=== PATIENT | female | born 1975 | race Caucasian/White ===

== ENCOUNTER 2024-05-13 08:33 | Outpatient (RCR) | payer MEDICAID, SELFPAY ==
[2024-05-13 08:37] VITALS: BP 157/59; PULSE 86; RESP 18; TEMP 36; BMI 46.5
--- NOTE | 2024-05-13 11:34 | PCM.WC.HP ---
History of Present Illness Date of Service: 05/13/24 Chief Complaint: Left labial wound after operative debridement History of Wound: Taylor Velásquez is an 49-year-old female who presents to the wound healing center today for continuation of care of her left labial wound. She states that she had cellulitis and an abscess that she went to [facility] in [place] and they did not I&D in the ER put her on some antibiotics and sent her home. 3 days later on 05/05/24, she return to the ER with increased erythema, pain, and fevers. She has uncontrolled diabetes. Her most recent hemoglobin A1c is 10.2. She is morbidly obese with a BMI of 46. She also smokes cigarettes. She was taken to the OR on 05/05/[address] Donna Mcallister for Necrotizing soft tissue infection of left groin (18 x 11 x 5 cm). Deep tissue cultures were positive for few mixed Anaerobic bacteria. She was discharged home on 05/08/24 doing Dry sterile gauze dressings to the wound 3 x per day. She was discharged on Augmentin x 10 days. She has a history of DM, HTN, hyperlipidemia, GERD, COPD, anxiety/depression. Today she is denying fever, chills, nausea or vomiting. She comes in for further evaluation and treatment of her left labial wound. Progress of Wound: Left labial wound is stable. The wound bed is beefy pink. It is painful to palpation. She denies any issues with the wound care. She has been packing it 3 times a day with dry kerlix. She states that dressing changes are uncomfortable. She has a good support system and her has been assisting her with the dressing changes. [facility] Medical History (Updated 05/13/24 @ 17:23 by Katherin Cordero PUTTY WORKER, PUTTY WORKER-C) Iron deficiency anemia DVT (deep venous thrombosis) Coronary artery disease Chronic back pain Anxiety and depression Elevated cholesterol Chronic anticoagulation Normal esophagogastroduodenoscopy (EGD) Ventral incisional hernia Morbid obesity with BMI of 45.0-49.9, adult Peripheral vascular disease Sleep apnea GERD (gastroesophageal reflux disease) HTN (hypertension) COPD (chronic obstructive pulmonary disease) Allergy/AdvReac Type Severity Reaction Status Date / Time No Known Allergies Allergy Verified 05/13/24 09:13 Family History (Updated 05/13/24 @ 17:07 by Katherin Cordero NP, PUTTY WORKER-C) Mother Diabetes Father Heart disease Social History Smoking Status: Current every day smoker ROS Constitutional Constitutional: Denies chills or fever(s) Eyes Eyes: Reports none ENT HEENT: Reports none Cardiovascular Cardiovascular: Denies chest pain or dyspnea Respiratory/Chest Respiratory/Chest: Reports as per HPI Gastrointestinal Gastrointestinal: Reports as per HPI Genitourinary Genitourinary: Reports none Musculoskeletal Musculoskeletal: Reports none Integumentary Integumentary: Reports as per HPI and wounds Neurologic Neurologic: Reports none Psychiatric Psychiatric: Reports systems reviewed and no addt'l complaints, except as documented Endocrine Endocrinology: Reports as per HPI Hematologic/Lymphatic Hematologic/Lymphatic: Reports none Allergic/Immunologic Allergic/Immunologic: Reports none Vital Signs Vital Signs Vital Signs: 05/13/24 08:37 Temperature 96.8 F L Temperature Source Temporal Pulse Rate 86 Respiratory Rate 18 Blood Pressure 157/59 H Blood Pressure Mean 91 Blood Pressure Source Monitor Weight Weight: 315 lb 7.297 oz Body Mass Index (BMI) 46.5 Physical Exam Const alert and oriented x3 General Appearance: cooperative HEENT normocephalic Head and Scalp: atraumatic Eyes General Eye: normal appearance of both eyes Neck full ROM Lymph Lymphatic: no lymphedema noted Resp normal respiratory effort, normal air movement and clear to auscultation bilaterally Effort and Inspection: able to speak in complete sentences Cardio regular rate and regular rhythm GI soft to palpation and non-tender Back/Spine normal ROM Extremity full ROM and normal capillary refill Skin Wound Narrative: Left labial wound with pink wound bed. Helen wound is clear. Neuro oriented x3 Psych mental status grossly normal, thought process normal and cooperative Debridement Note Debridement Note Wound debrided: Labial/groin wound Laterality: Left Wound Grade/Stage: Stage III Type of Debridement: Excisional debridement Anesthesia Used: 5% Lidocaine Gel Depth: Down to and including healthy tissue and in the subcutaneous layer Percentage of wound debrided: 100 Instrument Used: 7mm curette Tissue Removed: Non viable tissue and slough, into the muscle. Severity: Fat Layer Exposed Amount of bleeding with debridement: Mild Bleeding Controlled with: Compression and gauze Patient tolerated procedure: Patient tolerated procedure well Post-Debridement Measurements and Additional Note: Post-Debridement Measurements/Treatment WC - Nurse 1 - General Ulcer Assessment Start: 05/13/24 08:37 Freq: Status: Active Protocol: ELOISA Activity Type Activity Date Activity User E-sign Co-sign Detail Recorded Client Recorded Date Recorded By Document 05/13/24 08:37 DL [id number] 05/13/24 08:59 DL 05/13/24 08:37 - Today's Visit Information Type of service Initial Visit Arrival Mode Wheelchair Transfer Assistance None Patient Identification Verified (Name & Yes ) Patient Requires Transmission-Based No Precautions Height and Weight Height 5 ft 9 in Weight 315 lb 7.297 oz Weight in Pounds 315.5 lbs Body Mass Index (BMI) 46.5 BMI Classification Obese BSA - Yajaira 2.51 Vital Signs Temperature (97.8 F-99.1 F) 96.8 F L Temperature Source Temporal Pulse Rate (60-100) 86 Pulse Location Monitor Respiratory Rate (12-18) 18 Respiratory rate source Observation Blood Pressure (90/60-120/80) 157/59 H Blood Pressure Mean 91 Source Monitor Pain Scale: 0-10 Numeric Is Patient Pain Free? Yes Communication Assessment Preferred language Croatian Able to Read Yes Able to Write Yes Communication Tools None Right Hearing Abillity Normal Left Hearing Abillity Normal Visual Assistive Devices Glasses Teaching Assessment Preferences Verbal,Written, Audio/Visual, Demonstration Barriers to Learning None Readiness To Learn Excellent Willingness to Engage in Self Management High Activies Readiness to Engage in Self Management High Activities Anxiety Level Calm Cooperation Cooperative Perception Coherent Interest in Health Problem Asks Questions Education Importance Acknowledges Need Does Patient Smoke tobacco or other No substances Smoking Status Current every day smoker Is Patient Diabetic Yes Culture/Congregation/Want Ad Clerk Cultural/Congregation Needs that may affect No Treatment Plan Teaching: Wound Center Skin Care -Person Taught Patient -Teaching Method Discussion -Response to teaching Verbalize Understanding Dressing Your Wound -Person Taught Patient -Teaching Method Discussion -Response to teaching Verbalize Understanding *Wound/Skin Impairment -Person Taught Patient -Teaching Method Discussion -Response to teaching Verbalize Understanding *Welcome to the Wound Center -Person Taught Patient -Teaching Method Discussion -Response to teaching Verbalize Understanding - Nurse 1 - General Ulcer Measurement Start: 05/13/24 08:37 Freq: Status: Active Protocol: Activity Type Activity Date Activity User E-sign Co-sign Detail Recorded Client Recorded Date Recorded By Document 05/13/24 08:37 DL [id number] 05/13/24 08:59 DL 05/13/24 08:37 Wound Center Nurse 1 #1 - L GROIN -Combined with other wound No -Current Size (cm) - Length 19.2 -Current Size (cm) - Width 5 -Current Size (cm) - Depth 5.5 -Total Square Cm 96.0 -Date of Last Picture (Recall this 05/13/24 field) -Photo Taken Yes -Epithelialization None Present -Classification - Thickness Full Thickness without Exposed Support Structure -Exudate Amt Large -Exudate Type Serosanguineous -Wound Margin Distinct, Outline Attached -Granulation Amt Large (67-100%) -Granulation Quality Red -Slough/Fibrin Yes -Necrosis Amt Small (1-33%) -Necrotic Tissue Type Adherent Slough -Texture (Helen-wound Skin Appearance) Assessed, Excoriation, Scarring,Rash -Moisture (Helen-wound Skin Appearance) Assessed -Color (Helen-wound Skin Appearance) Assessed, Erythema -Temperature (Helen-wound Skin No Abnormality Appearance) (Pt Warm) -Tenderness on Palpation (Helen-wound No Skin Appearance) -Ulcer Cleansing Soap and Water -Foul Odor after Cleansing No -Anesthetic Used 4% Lidocaine Solution WC - Nurse 2 - General Ulcer CM Notes Start: 05/13/24 08:37 Freq: Status: Active Protocol: Activity Type Activity Date Activity User E-sign Co-sign Detail Recorded Client Recorded Date Recorded By Document 05/13/24 09:35 SANTIAGO [id number] 05/13/24 09:39 SANTIAGO 05/13/24 09:35 Wound Center Nurse 2 -Time 09:36 -Correct Patient Yes -Correct Side, Site, Position Yes -Correct Procedure Yes -Procedure Performed Yes -Type of Procedure Debridement -Clinical Debridement Muscle / Fascia -Tissue Removed Muscle,Fascia -Post Debridement (cm) - Length 16.0 -Post Debridement (cm) - Width 5.0 -Post Debridement (cm) - Depth 9.5 -Total Square (Post) (cm) 80.00 -Area of Debridement (cm) - Length 16.0 -Area of Debridement (cm) - Width 5.0 -Total Square (Area) (cm) 80.00 -Tunneling No -Undermining/Tunneling No -Circular Undermining No -Wound/Ulcer Outcome Not Healed -Ulcer Cleansing Rinsed/ Irrigated with Saline -Foul Odor after Cleansing No -Bioengineered Tissue No -Bleeding Controlled with Pressure -Treatment Response Procedure Tolerated Well -Offloading No -Debridement - Muscle / Fascia, 1st Yes 20sq cm -Debridement, Muscle/Fascia, ea addt'l 3 20sq cm or part thereof Pain Scale: 0-10 Numeric Is Patient Pain Free? Yes - Nurse 3 - General Ulcer D/C NN Start: 05/13/24 08:37 Freq: Status: Active Protocol: Activity Type Activity Date Activity User E-sign Co-sign Detail Recorded Client Recorded Date Recorded By Document 05/13/24 09:59 DL [id number] 05/13/24 10:00 DL 05/13/24 09:59 Wound Care Center Nurse 3 #1 - L GROIN -Ulcer Cleansing Rinsed/ Irrigated with Saline -Foul Odor after Cleansing No -Primary Dressing Applied Hysept ($) -Primary Dressing Covered/Secured with Dry Gauze & Roll Gauze, Secured with Tape -Other Covering abd Treatment Response Procedure Tolerated Well Pain Scale: 0-10 Numeric Is Patient Pain Free? Yes WC - Visit Discharge Discharge Condition Stable Ambulatory Status Ambulatory Transportation Private Auto Charges/Coding Visit Charges Office Visits / Consults: 46273 OV L3 New 30min (25 modifier) Procedures Integumentary 111xxx-113xx: 04364 Kaelyn musc/fascia 20 sq cm/< Add On Codes: 28913 Kaelyn musc/fascia add-on (x3) Assessment/Plan Assessment/Plan (1) Non-healing surgical wound of left groin: CODE(S): T81.89XA - Other complications of procedures, not elsewhere classified, initial encounter (2) COPD (chronic obstructive pulmonary disease): CODE(S): J44.9 - Chronic obstructive pulmonary disease, unspecified (3) HTN (hypertension): CODE(S): I10 - Essential (primary) hypertension PLAN: Plan Patient evaluated at the wound healing center. Wound care - Start Dakin's 0.25% moistened gauze topped with ABD/super absorber twice daily. Wash wound with soap and water daily. Reviewed chart from [facility]. She is currently on Augmentin, which she should complete. Will refer her to Dietary to help with wound healing and diabetic control. Discussed importance of increased protein intake to assist with wound healing. Follow up one week.
--- NOTE | 2024-05-14 09:04 | WC ---
PHOTO 05/13/24 LEFT LYNDA (I)
== END 2024-05-18 23:59 | disposition home or self-care (01) ==
LOC: WC 08:33
PROVIDERS: PCP Physician Assistant; Visit Provider Nurse Practitioner Family
DX: N76.4 Abscess of vulva (principal); J44.9 Chronic obstructive pulmonary disease, unspecified; E66.01 Morbid (severe) obesity due to excess calories; Z68.42 Body mass index [BMI] 45.0-49.9, adult; E11.51 Type 2 diabetes mellitus with diabetic peripheral angiopathy without gangrene; E78.5 Hyperlipidemia, unspecified; T81.89XA Other complications of procedures, not elsewhere classified, initial encounter; F17.210 Nicotine dependence, cigarettes, uncomplicated; I10 Essential (primary) hypertension; E78.00 Pure hypercholesterolemia, unspecified; I25.10 Atherosclerotic heart disease of native coronary artery without angina pectoris; K21.9 Gastro-esophageal reflux disease without esophagitis; Z86.718 Personal history of other venous thrombosis and embolism; B96.89 Other specified bacterial agents as the cause of diseases classified elsewhere
CPT/HCPCS: 11043; 11046; 99204; G0463

== ENCOUNTER 2024-06-17 09:45 | Outpatient (RCR) | payer MEDICAID, SELFPAY ==
[2024-05-19 00:57] VITALS: BP 157/59; PULSE 86; RESP 18; TEMP 36; BMI 46.5
[2024-05-20 08:31] VITALS: BP 149/75; PULSE 84; RESP 18; TEMP 36.6; BMI 46.5
--- NOTE | 2024-05-20 09:28 | PCM.WC.PN ---
History of Present Illness Date of Service: 05/20/24 Chief Complaint: Left labial wound after operative debridement History of Wound: Taylor Velásquez is an 49-year-old female who presents to the wound healing center today for continuation of care of her left labial wound. She states that she had cellulitis and an abscess that she went to [facility] in [place] and they did not I&D in the ER put her on some antibiotics and sent her home. 3 days later on 05/05/24, she return to the ER with increased erythema, pain, and fevers. She has uncontrolled diabetes. Her most recent hemoglobin A1c is 10.2. She is morbidly obese with a BMI of 46. She also smokes cigarettes. She was taken to the OR on 05/05/[address] Donna Mcallister for Necrotizing soft tissue infection of left groin (18 x 11 x 5 cm). Deep tissue cultures were positive for few mixed Anaerobic bacteria. She was discharged home on 05/08/24 doing Dry sterile gauze dressings to the wound 3 x per day. She was discharged on Augmentin x 10 days. She has a history of DM, HTN, hyperlipidemia, GERD, COPD, anxiety/depression. Today she is denying fever, chills, nausea or vomiting. She comes in for further evaluation and treatment of her left labial wound. Progress of Wound: Left labial wound is smaller. Decreased depth. The wound bed is beefy pink. It is painful to palpation. She denies any issues with the wound care. She has a yeast rash in her groin/labia and mons pubis. Objective Data Objective Data Vital Signs: Vital Signs Temp Pulse Resp BP 97.8 F 84 18 149/75 H 05/20/24 08:31 05/20/24 08:31 05/20/24 08:31 05/20/24 08:31 Weight: 315 lb 7.297 oz Body Mass Index (BMI) 46.5 Charges/Coding Procedures Integumentary 111xxx-113xx: 83859 Kaelyn musc/fascia 20 sq cm/< Add On Codes: 40240 Kaelyn musc/fascia add-on (x3) Debridement Note Debridement Note Wound debrided: Labial/groin wound Laterality: Left Wound Grade/Stage: Stage III Type of Debridement: Excisional debridement Anesthesia Used: 5% Lidocaine Gel Depth: Down to and including healthy tissue and in the subcutaneous layer Percentage of wound debrided: 100 Instrument Used: 7mm curette Tissue Removed: Non viable tissue and slough, into the muscle. Severity: Fat Layer Exposed Amount of bleeding with debridement: Mild Bleeding Controlled with: Compression and gauze Patient tolerated procedure: Patient tolerated procedure well Post-Debridement Measurements and Additional Note: Post-Debridement Measurements/Treatment TARYN - Nurse 1 - General Ulcer Assessment Start: 05/20/24 08:30 Freq: Status: Active Protocol: ELOISA Activity Type Activity Date Activity User E-sign Co-sign Detail Recorded Client Recorded Date Recorded By Document 05/20/24 08:31 DL [id number] 05/20/24 08:44 DL 05/20/24 08:31 WC - Today's Visit Information Type of service Follow-up Visit (Physician/GOODWILL REPRESENTATIVE ) Arrival Mode Ambulatory Transfer Assistance None Patient Identification Verified (Name & Yes ) Patient Requires Transmission-Based No Precautions Height and Weight Body Mass Index (BMI) 46.5 BMI Classification Obese Vital Signs Temperature (97.8 F-99.1 F) 97.8 F Temperature Source Temporal Pulse Rate (60-100) 84 Pulse Location Monitor Respiratory Rate (12-18) 18 Respiratory rate source Observation Blood Pressure (90/60-120/80) 149/75 H Blood Pressure Mean (mm Hg) 99 Source Monitor History Since Last Visit- (Skip if this is Patient's initial visit) Have you changed medications since your No last visit? Any new allergies or adverse reactions No Had a fall/change in ADL's that may No increase risk of falls Signs or symptoms of abuse and/or No neglect since last visit Have you been in the hospital since your No last visit? Has dressing in place as prescribed Yes Has compression in place as prescribed N/A Has offloadiing in place as prescribed N/A Experienced any changes in pain level or No management Pain Scale: 0-10 Numeric Is Patient Pain Free? Yes TARYN - Nurse 1 - General Ulcer Measurement Start: 05/20/24 08:30 Freq: Status: Active Protocol: Activity Type Activity Date Activity User E-sign Co-sign Detail Recorded Client Recorded Date Recorded By Document 05/20/24 08:31 DL [id number] 05/20/24 08:44 DL 05/20/24 08:31 Wound Center Nurse 1 #1 - L GROIN -Current Size (cm) - Length 16 -Current Size (cm) - Width 5 -Current Size (cm) - Depth 9.8 -Total Square Cm 80 -Exudate Amt Large -Exudate Type Serosanguineous -Wound Margin Distinct, Outline Attached -Granulation Amt Large (67-100%) -Granulation Quality Red -Necrosis Amt Small (1-33%) -Necrotic Tissue Type Adherent Slough -Structure Exposed N/A -Texture (Helen-wound Skin Appearance) Excoriation, Scarring -Moisture (Helen-wound Skin Appearance) Weeping -Color (Helen-wound Skin Appearance) Erythema -Temperature (Helen-wound Skin No Abnormality Appearance) (Pt Warm) -Tenderness on Palpation (Helen-wound No Skin Appearance) -Ulcer Cleansing Soap and Water -Foul Odor after Cleansing Yes -Anesthetic Used 4% Lidocaine Solution WC - Nurse 2 - General Ulcer CM Notes Start: 05/20/24 08:30 Freq: Status: Active Protocol: Activity Type Activity Date Activity User E-sign Co-sign Detail Recorded Client Recorded Date Recorded By Document 05/20/24 09:12 SANTIAGO [id number] 05/20/24 09:15 SANTIAGO 05/20/24 09:12 Wound Center Nurse 2 -Time 09:13 -Correct Patient Yes -Correct Side, Site, Position Yes -Correct Procedure Yes -Procedure Performed Yes -Type of Procedure Debridement -Clinical Debridement Muscle / Fascia -Tissue Removed Muscle,Fascia -Post Debridement (cm) - Length 16 -Post Debridement (cm) - Width 5 -Post Debridement (cm) - Depth 6.8 -Total Square (Post) (cm) 80 -Area of Debridement (cm) - Length 16 -Area of Debridement (cm) - Width 5 -Total Square (Area) (cm) 80 -Tunneling No -Undermining/Tunneling No -Circular Undermining No -Wound/Ulcer Outcome Not Healed -Ulcer Cleansing Rinsed/ Irrigated with Saline -Foul Odor after Cleansing No -Bioengineered Tissue No -Bleeding Controlled with Pressure -Treatment Response Procedure Not Tolerated Well -Offloading No -Debridement - Muscle / Fascia, 1st Yes 20sq cm -Debridement, Muscle/Fascia, ea addt'l 3 20sq cm or part thereof Pain Scale: 0-10 Numeric Is Patient Pain Free? Yes Assessment/Plan Assessment/Plan (1) Non-healing surgical wound of left groin: CODE(S): T81.89XA - Other complications of procedures, not elsewhere classified, initial encounter (2) COPD (chronic obstructive pulmonary disease): CODE(S): J44.9 - Chronic obstructive pulmonary disease, unspecified (3) HTN (hypertension): CODE(S): I10 - Essential (primary) hypertension PLAN: Plan Patient evaluated at the wound healing center. Wound care - Continue Dakin's 0.25% moistened gauze topped with ABD/super absorber twice daily. Wash wound with soap and water daily. Apply nystatin cream to groin, labia and mons pubis where yeast rash is located, BID. She is currently on Augmentin, which she should complete. Dietary here today for evaluation. Patient states her blood sugars are good. Discussed importance of increased protein intake to assist with wound healing. Follow up one week.
[2024-05-27 09:33] VITALS: BP 173/90; PULSE 87; RESP 16; TEMP 36.2; BMI 46.5
--- NOTE | 2024-05-27 14:23 | PCM.WC.PN ---
History of Present Illness Date of Service: 05/27/24 Chief Complaint: Left labial wound after operative debridement History of Wound: Taylor Velásquez is an 49-year-old female who presents to the wound healing center today for continuation of care of her left labial wound. She states that she had cellulitis and an abscess that she went to [facility] in [place] and they did not I&D in the ER put her on some antibiotics and sent her home. 3 days later on 05/05/24, she return to the ER with increased erythema, pain, and fevers. She has uncontrolled diabetes. Her most recent hemoglobin A1c is 10.2. She is morbidly obese with a BMI of 46. She also smokes cigarettes. She was taken to the OR on 05/05/[address] Donna Mcallister for Necrotizing soft tissue infection of left groin (18 x 11 x 5 cm). Deep tissue cultures were positive for few mixed Anaerobic bacteria. She was discharged home on 05/08/24 doing Dry sterile gauze dressings to the wound 3 x per day. She was discharged on Augmentin x 10 days. She has a history of DM, HTN, hyperlipidemia, GERD, COPD, anxiety/depression. Today she is denying fever, chills, nausea or vomiting. She comes in for further evaluation and treatment of her left labial wound. Progress of Wound: Left labial wound is smaller. Decreased depth. The wound bed is beefy pink. She denies any issues with the wound care. She continues to have a yeast rash in her groin/labia and mons pubis even with the use of the nystatin cream. Objective Data Objective Data Vital Signs: Vital Signs Temp Pulse Resp BP O2 Del Method 97.1 F L 87 16 173/90 H Room Air 05/27/24 09:33 05/27/24 09:33 05/27/24 09:33 05/27/24 09:33 05/27/24 09:33 Oxygen Delivery Method Room Air Weight: 315 lb 7.297 oz Body Mass Index (BMI) 46.5 Charges/Coding Procedures Integumentary 111xxx-113xx: 91082 Kaelyn musc/fascia 20 sq cm/< Add On Codes: 51804 Kaelyn musc/fascia add-on (x2) Debridement Note Debridement Note Wound debrided: Labial/groin wound Laterality: Left Wound Grade/Stage: Stage III Type of Debridement: Excisional debridement Anesthesia Used: 5% Lidocaine Gel Depth: Down to and including healthy tissue, in the subcutaneous layer and to muscle Percentage of wound debrided: 100 Instrument Used: 7mm curette Tissue Removed: Non viable tissue and slough, into the muscle. Severity: Fat Layer Exposed Amount of bleeding with debridement: Mild Bleeding Controlled with: Compression and gauze Patient tolerated procedure: Patient tolerated procedure well Post-Debridement Measurements and Additional Note: Post-Debridement Measurements/Treatment - Nurse 1 - General Ulcer Assessment Start: 05/20/24 08:30 Freq: Status: Active Protocol: ELOISA Activity Type Activity Date Activity User E-sign Co-sign Detail Recorded Client Recorded Date Recorded By Document 05/20/24 08:31 DL [id number] 05/20/24 08:44 DL Document 05/27/24 09:33 BM [id number] 05/27/24 09:40 BMF 05/20/24 05/27/24 08:31 09:33 - Today's Visit Information Type of service Follow-up Visit Follow-up Visit (Physician/UNDERGROUND TRUCK OPERATOR (Physician/UNDERGROUND TRUCK OPERATOR ) ) Arrival Mode Ambulatory Ambulatory Transfer Assistance None None Accompanied by Patient Identification Verified (Name & Yes Yes ) Patient Requires Transmission-Based No Precautions Height and Weight Body Mass Index (BMI) 46.5 46.5 BMI Classification Obese Obese Vital Signs Temperature (97.8 F-99.1 F) 97.8 F 97.1 F L Temperature Source Temporal Temporal Pulse Rate (60-100) 84 87 Pulse Location Monitor Monitor Respiratory Rate (12-18) 18 16 Respiratory rate source Observation Observation Oxygen Delivery Method Room Air Blood Pressure (90/60-120/80) 149/75 H 173/90 H Blood Pressure Mean (mm Hg) 99 117 Source Monitor Monitor Position Sitting Blood Pressure Location Left Arm History Since Last Visit- (Skip if this is Patient's initial visit) Have you changed medications since your No No last visit? Any new allergies or adverse reactions No No Had a fall/change in ADL's that may No No increase risk of falls Signs or symptoms of abuse and/or No No neglect since last visit Have you been in the hospital since your No No last visit? Has dressing in place as prescribed Yes Yes Has compression in place as prescribed N/A N/A Has offloadiing in place as prescribed N/A N/A Experienced any changes in pain level or No No management Left Footwear Regular Shoe Right Footwear Regular Shoe Pain Scale: 0-10 Numeric Is Patient Pain Free? Yes Yes WC - Nurse 1 - General Ulcer Measurement Start: 05/20/24 08:30 Freq: Status: Active Protocol: Activity Type Activity Date Activity User E-sign Co-sign Detail Recorded Client Recorded Date Recorded By Document 05/20/24 08:31 DL [id number] 05/20/24 08:44 DL Document 05/27/24 09:33 BMF [id number] 05/27/24 09:40 BMF 05/20/24 05/27/24 08:31 09:33 Wound Center Nurse 1 #1 - L GROIN -Combined with other wound No -Current Size (cm) - Length 16 15.5 -Current Size (cm) - Width 5 5.5 -Current Size (cm) - Depth 9.8 6.8 -Total Square Cm 80 85.25 -Date of Last Picture (Recall this 05/27/24 field) -Photo Taken Yes -Epithelialization Small 1-33% -Tunneling No -Undermining/Tunneling No -Circular Undermining No -Exudate Amt Large Large -Exudate Type Serosanguineous Serosanguineous -Wound Margin Distinct, Distinct, Outline Outline Attached Attached -Granulation Amt Large (67-100%) Large (67-100%) -Granulation Quality Red Red -Slough/Fibrin No -Necrosis Amt Small (1-33%) None Present (0 %) -Necrotic Tissue Type Adherent Slough -Structure Exposed N/A -Texture (Helen-wound Skin Appearance) Excoriation, Assessed, Scarring Scarring,Rash -Moisture (Helen-wound Skin Appearance) Weeping Assessed -Color (Helen-wound Skin Appearance) Erythema Assessed -Temperature (Helen-wound Skin No Abnormality No Abnormality Appearance) (Pt Warm) (Pt Warm) -Tenderness on Palpation (Helen-wound No No Skin Appearance) -Ulcer Cleansing Soap and Water Soap and Water -Foul Odor after Cleansing Yes No -Anesthetic Used 4% Lidocaine 4% Lidocaine Solution Solution -Wound Comment(s) skin folds look yeasty, but less so than last visit. TARYN - Nurse 2 - General Ulcer CM Notes Start: 05/20/24 08:30 Freq: Status: Active Protocol: Activity Type Activity Date Activity User E-sign Co-sign Detail Recorded Client Recorded Date Recorded By Document 05/20/24 09:12 [id number] 05/20/24 09:15 Document 05/27/24 10:18 [id number] 05/27/24 10:21 JF 05/20/24 05/27/24 09:12 10:18 Wound Center Nurse 2 #1 - L GROIN -Time 09:13 10:18 -Correct Patient Yes Yes -Correct Side, Site, Position Yes Yes -Correct Procedure Yes Yes -Procedure Performed Yes Yes -Type of Procedure Debridement Debridement -Clinical Debridement Muscle / Fascia Muscle / Fascia -Tissue Removed Muscle,Fascia Muscle,Fascia -Post Debridement (cm) - Length 16 16.0 -Post Debridement (cm) - Width 5 3.5 -Post Debridement (cm) - Depth 6.8 6.5 -Total Square (Post) (cm) 80 56.00 -Area of Debridement (cm) - Length 16 16.0 -Area of Debridement (cm) - Width 5 3.5 -Total Square (Area) (cm) 80 56.00 -Tunneling No No -Undermining/Tunneling No No -Circular Undermining No No -Wound/Ulcer Outcome Not Healed Not Healed -Ulcer Cleansing Rinsed/ Rinsed/ Irrigated with Irrigated with Saline Saline -Foul Odor after Cleansing No No -Bioengineered Tissue No No -Bleeding Controlled with Pressure Pressure -Treatment Response Procedure Not Procedure Tolerated Well Tolerated Well -Offloading No No -Debridement - Muscle / Fascia, 1st Yes Yes 20sq cm -Debridement, Muscle/Fascia, ea addt'l 3 2 20sq cm or part thereof Pain Scale: 0-10 Numeric Is Patient Pain Free? Yes Yes WC - Nurse 3 - General Ulcer D/C NN Start: 05/20/24 08:30 Freq: Status: Active Protocol: Activity Type Activity Date Activity User E-sign Co-sign Detail Recorded Client Recorded Date Recorded By Document 05/27/24 10:33 [facility] [id number] 05/27/24 10:34 [facility] 05/27/24 10:33 Wound Care Center Nurse 3 #1 - L GROIN -Ulcer Cleansing Rinsed/ Irrigated with Saline -Foul Odor after Cleansing No -Other Dressing dakins moist gauze; abd -Primary Dressing Covered/Secured with Secured with Tape Treatment Response Procedure Tolerated Well Pain Scale: 0-10 Numeric Is Patient Pain Free? Yes WC - Visit Discharge Discharge Condition Stable Ambulatory Status Ambulatory Transportation Private Auto Accompanied by Assessment/Plan Assessment/Plan (1) Non-healing surgical wound of left groin: CODE(S): T81.89XA - Other complications of procedures, not elsewhere classified, initial encounter (2) COPD (chronic obstructive pulmonary disease): CODE(S): J44.9 - Chronic obstructive pulmonary disease, unspecified (3) HTN (hypertension): CODE(S): I10 - Essential (primary) hypertension PLAN: Plan Patient evaluated at the wound healing center. Her and her are doing a nice job with her wound care. Wound care - Continue Dakin's 0.25% moistened gauze topped with ABD/super absorber twice daily. Wash wound with soap and water daily. Apply nystatin cream to groin, labia and mons pubis where yeast rash is located, BID. She has completed the Augmentin Patient states her blood sugars are good. Discussed importance of increased protein intake to assist with wound healing. She does not have follow up with the surgeon who did her surgery in [place]. I recommend calling their office and having a follow up them. Follow up one week.
--- NOTE | 2024-05-28 14:35 | WC ---
PHOTO LEFT GROIN 05/27/24
[2024-06-03 08:59] VITALS: BP 189/94; PULSE 85; RESP 16; TEMP 36.1; BMI 46.5
--- NOTE | 2024-06-03 13:10 | PCM.WC.PN ---
History of Present Illness Date of Service: 06/03/24 Chief Complaint: Left labial wound after operative debridement History of Wound: Taylor Velásquez is an 49-year-old female who presents to the wound healing center today for continuation of care of her left labial wound. She states that she had cellulitis and an abscess that she went to [facility] in [place] and they did not I&D in the ER put her on some antibiotics and sent her home. 3 days later on 05/05/24, she return to the ER with increased erythema, pain, and fevers. She has uncontrolled diabetes. Her most recent hemoglobin A1c is 10.2. She is morbidly obese with a BMI of 46. She also smokes cigarettes. She was taken to the OR on 05/05/[address] Donna Mcallister for Necrotizing soft tissue infection of left groin (18 x 11 x 5 cm). Deep tissue cultures were positive for few mixed Anaerobic bacteria. She was discharged home on 05/08/24 doing Dry sterile gauze dressings to the wound 3 x per day. She was discharged on Augmentin x 10 days. She has a history of DM, HTN, hyperlipidemia, GERD, COPD, anxiety/depression. Today she is denying fever, chills, nausea or vomiting. She comes in for further evaluation and treatment of her left labial wound. Progress of Wound: Left labial wound is smaller. Decreased depth. Decreased undermining from 6-12 o'clock. The wound bed is beefy pink. She denies any issues with the wound care. The yeast rash in her groin/labia and mons pubis is starting to improve, it looks much less angry. She is continuing to use the nystatin cream. Objective Data Objective Data Vital Signs: Vital Signs Temp Pulse Resp BP O2 Del Method 96.9 F L 85 16 189/94 H Room Air 06/03/24 08:59 06/03/24 08:59 06/03/24 08:59 06/03/24 08:59 05/27/24 09:33 Oxygen Delivery Method Room Air Weight: 315 lb 7.297 oz Body Mass Index (BMI) 46.5 Charges/Coding Procedures Integumentary 111xxx-113xx: 00878 Kaelyn subq tissue 20 sq cm/< Add On Codes: 55267 Kaelyn subq tissue add-on (x3) Debridement Note Debridement Note Wound debrided: Labial/groin wound Laterality: Left Wound Grade/Stage: Stage III Type of Debridement: Excisional debridement Anesthesia Used: 5% Lidocaine Gel Depth: Down to and including healthy tissue and in the subcutaneous layer Percentage of wound debrided: 100 Instrument Used: 7mm curette Tissue Removed: Non viable tissue and slough. Severity: Fat Layer Exposed Amount of bleeding with debridement: Mild Bleeding Controlled with: Compression and gauze Patient tolerated procedure: Patient tolerated procedure well Post-Debridement Measurements and Additional Note: Post-Debridement Measurements/Treatment - Nurse 1 - General Ulcer Assessment Start: 05/20/24 08:30 Freq: Status: Active Protocol: TARYN.Clean MobileLanny Activity Type Activity Date Activity User E-sign Co-sign Detail Recorded Client Recorded Date Recorded By Document 05/20/24 08:31 DL [id number] 05/20/24 08:44 DL Document 05/27/24 09:33 BMF [id number] 05/27/24 09:40 BMF Document 06/03/24 08:59 ML [id number] 06/03/24 09:03 ML 05/20/24 05/27/24 06/03/24 08:31 09:33 08:59 - Today's Visit Information Type of service Follow-up Visit Follow-up Visit Follow-up Visit (Physician/MORTAR MAN (Physician/MORTAR MAN (Physician/MORTAR MAN ) ) ) Arrival Mode Ambulatory Ambulatory Ambulatory Transfer Assistance None None None Accompanied by Patient Identification Verified (Name & Yes Yes Yes ) Patient Requires Transmission-Based No No Precautions Height and Weight Body Mass Index (BMI) 46.5 46.5 46.5 BMI Classification Obese Obese Obese Vital Signs Temperature (97.8 F-99.1 F) 97.8 F 97.1 F L 96.9 F L Temperature Source Temporal Temporal Temporal Pulse Rate (60-100) 84 87 85 Pulse Location Monitor Monitor Monitor Respiratory Rate (12-18) 18 16 16 Respiratory rate source Observation Observation Observation Oxygen Delivery Method Room Air Blood Pressure (90/60-120/80) 149/75 H 173/90 H 189/94 H Blood Pressure Mean (mm Hg) 99 117 125 Source Monitor Monitor Manual Position Sitting Sitting Blood Pressure Location Left Arm Left Forearm History Since Last Visit- (Skip if this is Patient's initial visit) Have you changed medications since your No No No last visit? Any new allergies or adverse reactions No No No Had a fall/change in ADL's that may No No No increase risk of falls Signs or symptoms of abuse and/or No No No neglect since last visit Have you been in the hospital since your No No last visit? Has dressing in place as prescribed Yes Yes Yes Has compression in place as prescribed N/A N/A N/A Has offloadiing in place as prescribed N/A N/A N/A Experienced any changes in pain level or No No No management Left Footwear Regular Shoe Right Footwear Regular Shoe Pain Scale: 0-10 Numeric Is Patient Pain Free? Yes Yes Yes WC - Nurse 1 - General Ulcer Measurement Start: 05/20/24 08:30 Freq: Status: Active Protocol: Activity Type Activity Date Activity User E-sign Co-sign Detail Recorded Client Recorded Date Recorded By Document 05/20/24 08:31 DL [id number] 05/20/24 08:44 DL Document 05/27/24 09:33 BMF [id number] 05/27/24 09:40 BMF Document 06/03/24 08:59 ML [id number] 06/03/24 09:03 ML 05/20/24 05/27/24 06/03/24 08:31 09:33 08:59 Wound Center Nurse 1 #1 - L GROIN -Combined with other wound No -Current Size (cm) - Length 16 15.5 13 -Current Size (cm) - Width 5 5.5 4 -Current Size (cm) - Depth 9.8 6.8 0.1 -Total Square Cm 80 85.25 52 -Date of Last Picture (Recall this 05/27/24 field) -Photo Taken Yes -Epithelialization Small 1-33% -Tunneling No -Undermining/Tunneling No -Circular Undermining No -Exudate Amt Large Large Medium -Exudate Type Serosanguineous Serosanguineous Serosanguineous -Wound Margin Distinct, Distinct, Distinct, Outline Outline Outline Attached Attached Attached -Granulation Amt Large (67-100%) Large (67-100%) Medium (34-66%) -Granulation Quality Red Red -Slough/Fibrin No -Necrosis Amt Small (1-33%) None Present (0 Medium (34-66%) %) -Necrotic Tissue Type Adherent Slough Adherent Slough -Structure Exposed N/A -Texture (Helen-wound Skin Appearance) Excoriation, Assessed, Assessed Scarring Scarring,Rash -Moisture (Helen-wound Skin Appearance) Weeping Assessed Assessed -Color (Helen-wound Skin Appearance) Erythema Assessed Assessed -Temperature (Helen-wound Skin No Abnormality No Abnormality No Abnormality Appearance) (Pt Warm) (Pt Warm) (Pt Warm) -Tenderness on Palpation (Helen-wound No No No Skin Appearance) -Ulcer Cleansing Soap and Water Soap and Water Soap and Water -Foul Odor after Cleansing Yes No No -Anesthetic Used 4% Lidocaine 4% Lidocaine 5% Lidocaine Solution Solution Gel -Wound Comment(s) skin folds look yeasty, but less so than last visit. WC - Nurse 2 - General Ulcer CM Notes Start: 05/20/24 08:30 Freq: Status: Active Protocol: Activity Type Activity Date Activity User E-sign Co-sign Detail Recorded Client Recorded Date Recorded By Document 05/20/24 09:12 [id number] 05/20/24 09:15 Document 05/27/24 10:18 [id number] 05/27/24 10:21 Document 06/03/24 09:15 [id number] 06/03/24 09:19 05/20/24 05/27/24 06/03/24 09:12 10:18 09:15 Wound Center Nurse 2 #1 - L GROIN -Time 09:13 10:18 09:17 -Correct Patient Yes Yes Yes -Correct Side, Site, Position Yes Yes Yes -Correct Procedure Yes Yes Yes -Procedure Performed Yes Yes Yes -Type of Procedure Debridement Debridement Debridement -Clinical Debridement Muscle / Fascia Muscle / Fascia Subcutaneous -Tissue Removed Muscle,Fascia Muscle,Fascia Subcutaneous -Post Debridement (cm) - Length 16 16.0 14.3 -Post Debridement (cm) - Width 5 3.5 5 -Post Debridement (cm) - Depth 6.8 6.5 0.1 -Total Square (Post) (cm) 80 56.00 71.5 -Area of Debridement (cm) - Length 16 16.0 14.3 -Area of Debridement (cm) - Width 5 3.5 5 -Total Square (Area) (cm) 80 56.00 71.5 -Tunneling No No -Undermining/Tunneling No No Yes -Undermining/Tunneling Starts (O'clock 6 ) -Undermining/Tunneling Ends (O'clock) 12 -Maximum Distance (cm) 0.6 -Circular Undermining No No No -Wound/Ulcer Outcome Not Healed Not Healed Not Healed -Ulcer Cleansing Rinsed/ Rinsed/ Rinsed/ Irrigated with Irrigated with Irrigated with Saline Saline Saline -Foul Odor after Cleansing No No No -Bioengineered Tissue No No No -Bleeding Controlled with Pressure Pressure Pressure -Treatment Response Procedure Not Procedure Procedure Tolerated Well Tolerated Well Tolerated Well -Offloading No No No -Debridement - Subq, 1st 20sq cm Yes -Debridement, SubQ, ea addt'l 20sq cm 3 or part thereof -Debridement - Muscle / Fascia, 1st Yes Yes 20sq cm -Debridement, Muscle/Fascia, ea addt'l 3 2 20sq cm or part thereof Pain Scale: 0-10 Numeric Is Patient Pain Free? Yes Yes Yes - Nurse 3 - General Ulcer D/C NN Start: 05/20/24 08:30 Freq: Status: Active Protocol: Activity Type Activity Date Activity User E-sign Co-sign Detail Recorded Client Recorded Date Recorded By Document 05/27/24 10:33 [facility] [id number] 05/27/24 10:34 [facility] Document 06/03/24 09:29 [facility] [id number] 06/03/24 09:29 [facility] 05/27/24 06/03/24 10:33 09:29 Wound Care Center Nurse 3 #1 - L GROIN -Ulcer Cleansing Rinsed/ Soap and Water Irrigated with Saline -Foul Odor after Cleansing No No -Other Dressing dakins moist dakins moist gauze; abd gauze -Primary Dressing Covered/Secured with Secured with Secured with Tape Tape -Other Covering abd Treatment Response Procedure Procedure Tolerated Well Tolerated Well Pain Scale: 0-10 Numeric Is Patient Pain Free? Yes Yes - Visit Discharge Discharge Condition Stable Stable Ambulatory Status Ambulatory Ambulatory Transportation Private Auto Private Auto Accompanied by Assessment/Plan Assessment/Plan (1) Non-healing surgical wound of left groin: CODE(S): T81.89XA - Other complications of procedures, not elsewhere classified, initial encounter (2) COPD (chronic obstructive pulmonary disease): CODE(S): J44.9 - Chronic obstructive pulmonary disease, unspecified (3) HTN (hypertension): CODE(S): I10 - Essential (primary) hypertension PLAN: Plan Patient evaluated at the wound healing center. She and her are doing a nice job with her wound care. Wound care - Continue Dakin's 0.25% moistened gauze topped with ABD/super absorber twice daily. Wash wound with soap and water daily. Apply nystatin cream to groin, labia and mons pubis where yeast rash is located, BID. She has completed the Augmentin Patient states her blood sugars are good. Discussed importance of increased protein intake to assist with wound healing. Follow up one week.
[2024-06-17 09:23] VITALS: BP 161/102; PULSE 86; RESP 16; TEMP 36.2; BMI 46.5
--- NOTE | 2024-06-17 16:06 | PCM.WC.PN ---
History of Present Illness Date of Service: 06/17/24 Chief Complaint: Left labial wound after operative debridement History of Wound: Taylor Velásquez is an 49-year-old female who presents to the wound healing center today for continuation of care of her left labial wound. She states that she had cellulitis and an abscess that she went to [facility] in [place] and they did not I&D in the ER put her on some antibiotics and sent her home. 3 days later on 05/05/24, she return to the ER with increased erythema, pain, and fevers. She has uncontrolled diabetes. Her most recent hemoglobin A1c is 10.2. She is morbidly obese with a BMI of 46. She also smokes cigarettes. She was taken to the OR on 05/05/[address] Donna Mcallister for Necrotizing soft tissue infection of left groin (18 x 11 x 5 cm). Deep tissue cultures were positive for few mixed Anaerobic bacteria. She was discharged home on 05/08/24 doing Dry sterile gauze dressings to the wound 3 x per day. She was discharged on Augmentin x 10 days. She has a history of DM, HTN, hyperlipidemia, GERD, COPD, anxiety/depression. Today she is denying fever, chills, nausea or vomiting. She comes in for further evaluation and treatment of her left labial wound. Progress of Wound: Left labial wound is much smaller. Undermining has resolved. She is having difficulty keeping the packing in. The wound bed is beefy pink. She denies any issues with the wound care. The yeast rash in her groin/labia and mons pubis is stable. She is continuing to use the nystatin cream. Objective Data Objective Data Vital Signs: Vital Signs Temp Pulse Resp BP O2 Del Method 97.1 F L 86 16 161/102 H Room Air 06/17/24 09:23 06/17/24 09:23 06/17/24 09:23 06/17/24 09:23 05/27/24 09:33 Oxygen Delivery Method Room Air Weight: 315 lb 7.297 oz Body Mass Index (BMI) 46.5 Charges/Coding Procedures Integumentary 111xxx-113xx: 06602 Kaelyn subq tissue 20 sq cm/< Add On Codes: 65275 Kaelyn subq tissue add-on Debridement Note Debridement Note Wound debrided: Labial/groin wound Laterality: Left Wound Grade/Stage: Stage III Type of Debridement: Excisional debridement Anesthesia Used: 5% Lidocaine Gel Depth: Down to and including healthy tissue and in the subcutaneous layer Percentage of wound debrided: 100 Instrument Used: 7mm curette Tissue Removed: Non viable tissue and slough. Severity: Fat Layer Exposed Amount of bleeding with debridement: Mild Bleeding Controlled with: Compression and gauze Patient tolerated procedure: Patient tolerated procedure well Post-Debridement Measurements and Additional Note: Post-Debridement Measurements/Treatment - Nurse 1 - General Ulcer Assessment Start: 05/20/24 08:30 Freq: Status: Active Protocol: Design2LaunchÁNGEL Activity Type Activity Date Activity User E-sign Co-sign Detail Recorded Client Recorded Date Recorded By Document 05/20/24 08:31 DL [id number] 05/20/24 08:44 DL Document 05/27/24 09:33 BMF [id number] 05/27/24 09:40 BMF Document 06/03/24 08:59 ML [id number] 06/03/24 09:03 ML Document 06/17/24 09:23 ML [id number] 06/17/24 09:28 ML 05/20/24 05/27/24 06/03/24 08:31 09:33 08:59 - Today's Visit Information Type of service Follow-up Visit Follow-up Visit Follow-up Visit (Physician/INTERMEDIATE DESIGNER (Physician/INTERMEDIATE DESIGNER (Physician/INTERMEDIATE DESIGNER ) ) ) Arrival Mode Ambulatory Ambulatory Ambulatory Transfer Assistance None None None Accompanied by Patient Identification Verified (Name & Yes Yes Yes ) Patient Requires Transmission-Based No No Precautions Height and Weight Body Mass Index (BMI) 46.5 46.5 46.5 BMI Classification Obese Obese Obese Vital Signs Temperature (97.8 F-99.1 F) 97.8 F 97.1 F L 96.9 F L Temperature Source Temporal Temporal Temporal Pulse Rate (60-100) 84 87 85 Pulse Location Monitor Monitor Monitor Respiratory Rate (12-18) 18 16 16 Respiratory rate source Observation Observation Observation Oxygen Delivery Method Room Air Blood Pressure (90/60-120/80) 149/75 H 173/90 H 189/94 H Blood Pressure Mean (mm Hg) 99 117 125 Source Monitor Monitor Manual Position Sitting Sitting Blood Pressure Location Left Arm Left Forearm History Since Last Visit- (Skip if this is Patient's initial visit) Have you changed medications since your No No No last visit? Any new allergies or adverse reactions No No No Had a fall/change in ADL's that may No No No increase risk of falls Signs or symptoms of abuse and/or No No No neglect since last visit Have you been in the hospital since your No No last visit? Has dressing in place as prescribed Yes Yes Yes Has compression in place as prescribed N/A N/A N/A Has offloadiing in place as prescribed N/A N/A N/A Experienced any changes in pain level or No No No management Left Footwear Regular Shoe Right Footwear Regular Shoe Pain Scale: 0-10 Numeric Is Patient Pain Free? Yes Yes Yes 06/17/24 09:23 WC - Today's Visit Information Type of service Follow-up Visit (Physician/INTERMEDIATE DESIGNER ) Arrival Mode Ambulatory Transfer Assistance None Accompanied by Patient Identification Verified (Name & Yes ) Patient Requires Transmission-Based No Precautions Height and Weight Body Mass Index (BMI) 46.5 BMI Classification Obese Vital Signs Temperature (97.8 F-99.1 F) 97.1 F L Temperature Source Temporal Pulse Rate (60-100) 86 Pulse Location Monitor Respiratory Rate (12-18) 16 Respiratory rate source Observation Oxygen Delivery Method Blood Pressure (90/60-120/80) 161/102 H Blood Pressure Mean (mm Hg) 121 Source Monitor Position Semi-Fowlers Blood Pressure Location Right Arm History Since Last Visit- (Skip if this is Patient's initial visit) Have you changed medications since your No last visit? Any new allergies or adverse reactions No Had a fall/change in ADL's that may No increase risk of falls Signs or symptoms of abuse and/or neglect since last visit Have you been in the hospital since your No last visit? Has dressing in place as prescribed Yes Has compression in place as prescribed N/A Has offloadiing in place as prescribed N/A Experienced any changes in pain level or No management Left Footwear Right Footwear Pain Scale: 0-10 Numeric Is Patient Pain Free? Yes - Nurse 1 - General Ulcer Measurement Start: 05/20/24 08:30 Freq: Status: Active Protocol: Activity Type Activity Date Activity User E-sign Co-sign Detail Recorded Client Recorded Date Recorded By Document 05/20/24 08:31 DL [id number] 05/20/24 08:44 DL Document 05/27/24 09:33 BMF [id number] 05/27/24 09:40 BMF Document 06/03/24 08:59 ML [id number] 06/03/24 09:03 ML Document 06/17/24 09:23 ML [id number] 06/17/24 09:28 ML 05/20/24 05/27/24 06/03/24 08:31 09:33 08:59 Wound Center Nurse 1 #1 - L GROIN -Combined with other wound No -Current Size (cm) - Length 16 15.5 13 -Current Size (cm) - Width 5 5.5 4 -Current Size (cm) - Depth 9.8 6.8 0.1 -Total Square Cm 80 85.25 52 -Date of Last Picture (Recall this 05/27/24 field) -Photo Taken Yes -Epithelialization Small 1-33% -Tunneling No -Undermining/Tunneling No -Circular Undermining No -Exudate Amt Large Large Medium -Exudate Type Serosanguineous Serosanguineous Serosanguineous -Wound Margin Distinct, Distinct, Distinct, Outline Outline Outline Attached Attached Attached -Granulation Amt Large (67-100%) Large (67-100%) Medium (34-66%) -Granulation Quality Red Red -Slough/Fibrin No -Necrosis Amt Small (1-33%) None Present (0 Medium (34-66%) %) -Necrotic Tissue Type Adherent Slough Adherent Slough -Structure Exposed N/A -Texture (Helen-wound Skin Appearance) Excoriation, Assessed, Assessed Scarring Scarring,Rash -Moisture (Helen-wound Skin Appearance) Weeping Assessed Assessed -Color (Helen-wound Skin Appearance) Erythema Assessed Assessed -Temperature (Helen-wound Skin No Abnormality No Abnormality No Abnormality Appearance) (Pt Warm) (Pt Warm) (Pt Warm) -Tenderness on Palpation (Helen-wound No No No Skin Appearance) -Ulcer Cleansing Soap and Water Soap and Water Soap and Water -Foul Odor after Cleansing Yes No No -Anesthetic Used 4% Lidocaine 4% Lidocaine 5% Lidocaine Solution Solution Gel -Wound Comment(s) skin folds look yeasty, but less so than last visit. 06/17/24 09:23 Wound Center Nurse 1 #1 - L GROIN -Combined with other wound -Current Size (cm) - Length 9.5 -Current Size (cm) - Width 3.5 -Current Size (cm) - Depth 0.1 -Total Square Cm 33.25 -Date of Last Picture (Recall this field) -Photo Taken -Epithelialization -Tunneling -Undermining/Tunneling -Circular Undermining -Exudate Amt Medium -Exudate Type Serosanguineous -Wound Margin Distinct, Outline Attached -Granulation Amt Medium (34-66%) -Granulation Quality -Slough/Fibrin -Necrosis Amt Small (1-33%) -Necrotic Tissue Type Adherent Slough -Structure Exposed -Texture (Helen-wound Skin Appearance) Assessed -Moisture (Helen-wound Skin Appearance) Assessed -Color (Helen-wound Skin Appearance) Assessed -Temperature (Helen-wound Skin No Abnormality Appearance) (Pt Warm) -Tenderness on Palpation (Helen-wound No Skin Appearance) -Ulcer Cleansing Soap and Water -Foul Odor after Cleansing Yes -Anesthetic Used 5% Lidocaine Gel -Wound Comment(s) WC - Nurse 2 - General Ulcer CM Notes Start: 05/20/24 08:30 Freq: Status: Active Protocol: Activity Type Activity Date Activity User E-sign Co-sign Detail Recorded Client Recorded Date Recorded By Document 05/20/24 09:12 [id number] 05/20/24 09:15 Document 05/27/24 10:18 [id number] 05/27/24 10:21 Document 06/03/24 09:15 JF [id number] 06/03/24 09:19 Document 06/17/24 09:37 DS [id number] 06/17/24 09:40 DS 05/20/24 05/27/24 06/03/24 09:12 10:18 09:15 Wound Center Nurse 2 #1 - L GROIN -Time 09:13 10:18 09:17 -Correct Patient Yes Yes Yes -Correct Side, Site, Position Yes Yes Yes -Correct Procedure Yes Yes Yes -Procedure Performed Yes Yes Yes -Type of Procedure Debridement Debridement Debridement -Clinical Debridement Muscle / Fascia Muscle / Fascia Subcutaneous -Tissue Removed Muscle,Fascia Muscle,Fascia Subcutaneous -Post Debridement (cm) - Length 16 16.0 14.3 -Post Debridement (cm) - Width 5 3.5 5 -Post Debridement (cm) - Depth 6.8 6.5 0.1 -Total Square (Post) (cm) 80 56.00 71.5 -Area of Debridement (cm) - Length 16 16.0 14.3 -Area of Debridement (cm) - Width 5 3.5 5 -Total Square (Area) (cm) 80 56.00 71.5 -Tunneling No No -Undermining/Tunneling No No Yes -Undermining/Tunneling Starts (O'clock 6 ) -Undermining/Tunneling Ends (O'clock) 12 -Maximum Distance (cm) 0.6 -Circular Undermining No No No -Wound/Ulcer Outcome Not Healed Not Healed Not Healed -Ulcer Cleansing Rinsed/ Rinsed/ Rinsed/ Irrigated with Irrigated with Irrigated with Saline Saline Saline -Foul Odor after Cleansing No No No -Bioengineered Tissue No No No -Bleeding Controlled with Pressure Pressure Pressure -Treatment Response Procedure Not Procedure Procedure Tolerated Well Tolerated Well Tolerated Well -Offloading No No No -Debridement - Subq, 1st 20sq cm Yes -Debridement, SubQ, ea addt'l 20sq cm 3 or part thereof -Debridement - Muscle / Fascia, 1st Yes Yes 20sq cm -Debridement, Muscle/Fascia, ea addt'l 3 2 20sq cm or part thereof Pain Scale: 0-10 Numeric Is Patient Pain Free? Yes Yes Yes 06/17/24 09:37 Wound Center Nurse 2 #1 - L GROIN -Time 09:37 -Correct Patient Yes -Correct Side, Site, Position Yes -Correct Procedure Yes -Procedure Performed Yes -Type of Procedure Debridement -Clinical Debridement Subcutaneous -Tissue Removed Subcutaneous -Post Debridement (cm) - Length 10.5 -Post Debridement (cm) - Width 4.0 -Post Debridement (cm) - Depth 0.2 -Total Square (Post) (cm) 42.00 -Area of Debridement (cm) - Length 10.5 -Area of Debridement (cm) - Width 4.0 -Total Square (Area) (cm) 42.00 -Tunneling No -Undermining/Tunneling No -Undermining/Tunneling Starts (O'clock ) -Undermining/Tunneling Ends (O'clock) -Maximum Distance (cm) -Circular Undermining No -Wound/Ulcer Outcome Not Healed -Ulcer Cleansing Rinsed/ Irrigated with Saline -Foul Odor after Cleansing -Bioengineered Tissue No -Bleeding Controlled with Pressure -Treatment Response Procedure Tolerated Well -Offloading -Debridement - Subq, 1st 20sq cm Yes -Debridement, SubQ, ea addt'l 20sq cm 2 or part thereof -Debridement - Muscle / Fascia, 1st 20sq cm -Debridement, Muscle/Fascia, ea addt'l 20sq cm or part thereof Pain Scale: 0-10 Numeric Is Patient Pain Free? Yes - Nurse 3 - General Ulcer D/C NN Start: 05/20/24 08:30 Freq: Status: Active Protocol: Activity Type Activity Date Activity User E-sign Co-sign Detail Recorded Client Recorded Date Recorded By Document 05/27/24 10:33 [facility] [id number] 05/27/24 10:34 BM Document 06/03/24 09:29 BMF [id number] 06/03/24 09:29 [facility] Document 06/17/24 09:49 ML [id number] 06/17/24 09:49 ML 05/27/24 06/03/24 06/17/24 10:33 09:29 09:49 Wound Care Center Nurse 3 #1 - L GROIN -Ulcer Cleansing Rinsed/ Soap and Water Rinsed/ Irrigated with Irrigated with Saline Saline -Foul Odor after Cleansing No No -Primary Dressing Applied Aquacel AG 4x4 -Other Dressing dakins moist dakins moist abd gauze; abd gauze -Primary Dressing Covered/Secured with Secured with Secured with Secured with Tape Tape Tape -Other Covering abd -Aquacel AG 4x4 1 Treatment Response Procedure Procedure Tolerated Well Tolerated Well Pain Scale: 0-10 Numeric Is Patient Pain Free? Yes Yes Yes - Visit Discharge Discharge Condition Stable Stable Ambulatory Status Ambulatory Ambulatory Transportation Private Auto Private Auto Accompanied by Assessment/Plan Assessment/Plan (1) Non-healing surgical wound of left groin: CODE(S): T81.89XA - Other complications of procedures, not elsewhere classified, initial encounter (2) COPD (chronic obstructive pulmonary disease): CODE(S): J44.9 - Chronic obstructive pulmonary disease, unspecified (3) HTN (hypertension): CODE(S): I10 - Essential (primary) hypertension PLAN: Plan Patient evaluated at the wound healing center. She and her are doing a nice job with her wound care. Wound care - Start Aquacel-Ag topped with ABD/super absorber daily and as needed. Wash wound with soap and water daily. Apply nystatin cream to groin, labia and mons pubis where yeast rash is located, BID. She has completed the Augmentin Patient states her blood sugars are good. Discussed importance of increased protein intake to assist with wound healing. Follow up two weeks.
== END 2024-06-18 23:59 | disposition home or self-care (01) ==
LOC: WC 09:45
PROVIDERS: PCP Physician Assistant; Visit Provider Nurse Practitioner Family
DX: N76.4 Abscess of vulva (principal); J44.9 Chronic obstructive pulmonary disease, unspecified; E66.01 Morbid (severe) obesity due to excess calories; Z68.42 Body mass index [BMI] 45.0-49.9, adult; E11.9 Type 2 diabetes mellitus without complications; E78.5 Hyperlipidemia, unspecified; F17.210 Nicotine dependence, cigarettes, uncomplicated; I10 Essential (primary) hypertension; T81.89XA Other complications of procedures, not elsewhere classified, initial encounter; Y83.8 Other surgical procedures as the cause of abnormal reaction of the patient, or of later complication, without mention of misadventure at the time of the procedure; K21.9 Gastro-esophageal reflux disease without esophagitis; B37.31 Acute candidiasis of vulva and vagina
CPT/HCPCS: 11042; 11043; 11045; 11046; 97802

== ENCOUNTER 2024-07-15 09:45 | Outpatient (RCR) | payer MEDICAID, SELFPAY ==
[2024-06-19 00:49] VITALS: BP 157/59; PULSE 86; RESP 18; TEMP 36; BMI 46.5
[2024-07-01 09:34] VITALS: BP 146/80; PULSE 80; RESP 15; TEMP 36.3; BMI 46.5
--- NOTE | 2024-07-01 10:12 | PN.PCM_ITS ---
History of Present Illness Date of Service: 07/01/24 Chief Complaint: Left labial wound after operative debridement History of Wound: Taylor Velásquez is an 49-year-old female who presents to the wound healing center today for continuation of care of her left labial wound. She states that she had cellulitis and an abscess that she went to [facility] in [place] and they did not I&D in the ER put her on some antibiotics and sent her home. 3 days later on 05/05/24, she return to the ER with i ncreased erythema, pain, and fevers. She has uncontrolled diabetes. Her most recent hemoglobin A1c is 10.2. She is morbidly obese with a BMI of 46. She also smokes cigarettes. She was taken to the OR on 05/05/[address] Donna Mcallister for Necrotizing soft tissue infection of left groin (18 x 11 x 5 cm). Deep tissue cultures were positive for few mixed Anaerobic bacteria. She was discharged home on 05/08/24 doing Dry sterile gauze dressings to the wound 3 x per day. She was discharged on Augmentin x 10 days. She has a history of DM, HTN, hyperlipidemia, GERD, COPD, anxiety/depression. Today she is denying fever, chills, nausea or vomiting. She comes in for further evaluation and treatment of her left labial wound. Progress of Wound: Left labial ulcer is smaller. The ulcer bed is beefy pink. Helen wound is clear. The yeast rash has resolved. She denies any issues with the wound care. Objective Data Objective Data Vital Signs: Vital Signs Temp Pulse Resp BP 97.4 F L 80 15 146/80 H 07/01/24 09:34 07/01/24 09:34 07/01/24 09:34 07/01/24 09:34 Weight: 315 lb 7.297 oz Body Mass Index (BMI) 46.5 Charges/Coding Procedures Integumentary 111xxx-113xx: 25938 Kaelyn subq tissue 20 sq cm/< Debridement Note Debridement Note Wound debrided: Labial/groin ulcer Laterality: Left Wound Grade/Stage: Stage III Type of Debridement: Excisional debridement Anesthesia Used: 5% Lidocaine Gel Depth: Down to and including healthy tissue and in the subcutaneous layer Percentage of wound debrided: 100 Instrument Used: 7mm curette Tissue Removed: Non viable tissue and slough. Severity: Fat Layer Exposed Amount of bleeding with debridement: Mild Bleeding Controlled with: Compression and gauze Patient tolerated procedure: Patient tolerated procedure well Post-Debridement Measurements and Additional Note: Post-Debridement Measurements/Treatment - Nurse 1 - General Ulcer Assessment Start: 07/01/24 09:34 Freq: Status: Active Protocol: ELOISA Activity Type Activity Date Activity User E-sign Co-sign Detail Recorded Client Recorded Date Recorded By Document 07/01/24 09:34 ML [id number] 07/01/24 09:40 ML 07/01/24 09:34 WC - Today's Visit Information Type of service Follow-up Visit (Physician/GL ACCOUNTANT ) Arrival Mode Ambulatory Transfer Assistance None Patient Identification Verified (Name & Yes ) Patient Requires Transmission-Based No Precautions Height and Weight Body Mass Index (BMI) 46.5 BMI Classification Obese Vital Signs Temperature (97.8 F-99.1 F) 97.4 F L Temperature Source Temporal Pulse Rate (60-100) 80 Pulse Location Monitor Respiratory Rate (12-18) 15 Respiratory rate source Observation Blood Pressure (90/60-120/80) 146/80 H Blood Pressure Mean (mm Hg) 102 Source Monitor Position Sitting Blood Pressure Location Left Arm History Since Last Visit- (Skip if this is Patient's initial visit) Have you changed medications since your No last visit? Any new allergies or adverse reactions No Had a fall/change in ADL's that may No increase risk of falls Signs or symptoms of abuse and/or No neglect since last visit Have you been in the hospital since your No last visit? Has dressing in place as prescribed No Has compression in place as prescribed N/A Has offloadiing in place as prescribed N/A Experienced any changes in pain level or No management Pain Scale: 0-10 Numeric Is Patient Pain Free? Yes - Nurse 1 - General Ulcer Measurement Start: 07/01/24 09:34 Freq: Status: Active Protocol: Activity Type Activity Date Activity User E-sign Co-sign Detail Recorded Client Recorded Date Recorded By Document 07/01/24 09:34 ML [id number] 07/01/24 09:40 ML 07/01/24 09:34 Wound Center Nurse 1 #1 - L GROIN -Current Size (cm) - Length 7 -Current Size (cm) - Width 1.5 -Current Size (cm) - Depth 0.1 -Total Square Cm 10.5 -Exudate Amt Medium -Exudate Type Serosanguineous -Wound Margin Distinct, Outline Attached -Granulation Amt Medium (34-66%) -Necrosis Amt Medium (34-66%) -Necrotic Tissue Type Adherent Slough -Texture (Helen-wound Skin Appearance) Assessed -Moisture (Helen-wound Skin Appearance) Assessed -Color (Helen-wound Skin Appearance) Assessed -Temperature (Helen-wound Skin No Abnormality Appearance) (Pt Warm) -Tenderness on Palpation (Helen-wound No Skin Appearance) -Ulcer Cleansing Soap and Water -Foul Odor after Cleansing No -Anesthetic Used 5% Lidocaine Gel WC - Nurse 2 - General Ulcer CM Notes Start: 07/01/24 09:34 Freq: Status: Active Protocol: Activity Type Activity Date Activity User E-sign Co-sign Detail Recorded Client Recorded Date Recorded By Document 07/01/24 09:51 GM [id number] 07/01/24 09:55 GM 07/01/24 09:51 Wound Center Nurse 2 -Time 09:51 -Correct Patient Yes -Correct Side, Site, Position Yes -Correct Procedure Yes -Procedure Performed Yes -Type of Procedure Debridement -Clinical Debridement Subcutaneous -Tissue Removed Subcutaneous -Post Debridement (cm) - Length 7.5 -Post Debridement (cm) - Width 2.4 -Post Debridement (cm) - Depth 0.1 -Total Square (Post) (cm) 18.00 -Area of Debridement (cm) - Length 7.5 -Area of Debridement (cm) - Width 2.4 -Total Square (Area) (cm) 18.00 -Tunneling No -Undermining/Tunneling No -Circular Undermining No -Wound/Ulcer Outcome Not Healed -Ulcer Cleansing Rinsed/ Irrigated with Saline -Foul Odor after Cleansing No -Bioengineered Tissue No -Bleeding Controlled with Pressure -Treatment Response Procedure Tolerated Well -Debridement - Subq, 1st 20sq cm Yes Pain Scale: 0-10 Numeric Is Patient Pain Free? Yes - Nurse 3 - General Ulcer D/C NN Start: 07/01/24 09:34 Freq: Status: Active Protocol: Activity Type Activity Date Activity User E-sign Co-sign Detail Recorded Client Recorded Date Recorded By Document 07/01/24 10:01 ML [id number] 07/01/24 10:02 ML 07/01/24 10:01 Wound Care Center Nurse 3 #1 - L GROIN -Ulcer Cleansing Rinsed/ Irrigated with Saline -Primary Dressing Applied Aquacel AG 4x4 -Other Dressing abd -Aquacel AG 4x4 1 Pain Scale: 0-10 Numeric Is Patient Pain Free? Yes Assessment/Plan Assessment/Plan (1) Ulcer of left groin with fat layer exposed: CODE(S): L98.492 - Non-pressure chronic ulcer of skin of other sites with fat layer exposed (2) COPD (chronic obstructive pulmonary disease): CODE(S): J44.9 - Chronic obstructive pulmonary disease, unspecified (3) HTN (hypertension): CODE(S): I10 - Essential (primary) hypertension PLAN: Plan Patient evaluated at the wound healing center. She and her are doing a nice job with her wound care. Wound care - Aquacel-Ag topped with ABD/super absorber daily and as needed. Wash wound with soap and water daily. Patient states her blood sugars are good. Discussed importance of increased protein intake to assist with wound healing. Follow up one week.
[2024-07-15 09:37] VITALS: BP 156/92; PULSE 78; RESP 18; TEMP 36.1; BMI 46.5
--- NOTE | 2024-07-15 12:53 | PCM.WC.PN ---
History of Present Illness Date of Service: 07/15/24 Chief Complaint: Left labial wound after operative debridement History of Wound: Taylor Velásquez is an 49-year-old female who presents to the wound healing center today for continuation of care of her left labial wound. She states that she had cellulitis and an abscess that she went to [facility] in [place] and they did not I&D in the ER put her on some antibiotics and sent her home. 3 days later on 05/05/24, she return to the ER with increased erythema, pain, and fevers. She has uncontrolled diabetes. Her most recent hemoglobin A1c is 10.2. She is morbidly obese with a BMI of 46. She also smokes cigarettes. She was taken to the OR on 05/05/[address] Donna Mcallister for Necrotizing soft tissue infection of left groin (18 x 11 x 5 cm). Deep tissue cultures were positive for few mixed Anaerobic bacteria. She was discharged home on 05/08/24 doing Dry sterile gauze dressings to the wound 3 x per day. She was discharged on Augmentin x 10 days. She has a history of DM, HTN, hyperlipidemia, GERD, COPD, anxiety/depression. Today she is denying fever, chills, nausea or vomiting. She comes in for further evaluation and treatment of her left labial wound. Progress of Wound: Left labial ulcer is much smaller. The ulcer bed is beefy pink. Helen wound is clear. She denies any issues with the wound care. She denies any issues with the scar contraction impacting her urine stream. Objective Data Objective Data Vital Signs: Vital Signs Temp Pulse Resp BP 97 F L 78 18 156/92 H 07/15/24 09:37 07/15/24 09:37 07/15/24 09:37 07/15/24 09:37 Weight: 287 lb Body Mass Index (BMI) 46.5 Charges/Coding Procedures Integumentary 111xxx-113xx: 38100 Kaelyn subq tissue 20 sq cm/< Debridement Note Debridement Note Wound debrided: Labial/groin ulcer Laterality: Left Wound Grade/Stage: Stage III Type of Debridement: Excisional debridement Anesthesia Used: 5% Lidocaine Gel Depth: Down to and including healthy tissue and in the subcutaneous layer Percentage of wound debrided: 100 Instrument Used: 5mm curette Tissue Removed: Non viable tissue and slough. Severity: Fat Layer Exposed Amount of bleeding with debridement: Mild Bleeding Controlled with: Compression and gauze Patient tolerated procedure: Patient tolerated procedure well Post-Debridement Measurements and Additional Note: Post-Debridement Measurements/Treatment WC - Nurse 1 - General Ulcer Assessment Start: 07/01/24 09:34 Freq: Status: Active Protocol: ELOISA Activity Type Activity Date Activity User E-sign Co-sign Detail Recorded Client Recorded Date Recorded By Document 07/01/24 09:34 ML [id number] 07/01/24 09:40 ML Document 07/15/24 09:37 DL [id number] 07/15/24 09:43 DL 07/01/24 07/15/24 09:34 09:37 WC - Today's Visit Information Type of service Follow-up Visit Follow-up Visit (Physician/REPRESENTATIVE GOVERNMENT RELATIONS (Physician/REPRESENTATIVE GOVERNMENT RELATIONS ) ) Arrival Mode Ambulatory Ambulatory Transfer Assistance None None Patient Identification Verified (Name & Yes Yes ) Patient Requires Transmission-Based No No Precautions Height and Weight Body Mass Index (BMI) 46.5 46.5 BMI Classification Obese Obese Vital Signs Temperature (97.8 F-99.1 F) 97.4 F L 97 F L Temperature Source Temporal Temporal Pulse Rate (60-100) 80 78 Pulse Location Monitor Monitor Respiratory Rate (12-18) 15 18 Respiratory rate source Observation Observation Blood Pressure (90/60-120/80) 146/80 H 156/92 H Blood Pressure Mean (mm Hg) 102 113 Source Monitor Monitor Position Sitting Blood Pressure Location Left Arm History Since Last Visit- (Skip if this is Patient's initial visit) Have you changed medications since your No No last visit? Any new allergies or adverse reactions No No Had a fall/change in ADL's that may No No increase risk of falls Signs or symptoms of abuse and/or No No neglect since last visit Have you been in the hospital since your No No last visit? Has dressing in place as prescribed No Yes Has compression in place as prescribed N/A N/A Has offloadiing in place as prescribed N/A N/A Experienced any changes in pain level or No No management Pain Scale: 0-10 Numeric Is Patient Pain Free? Yes Yes TARYN - Nurse 1 - General Ulcer Measurement Start: 07/01/24 09:34 Freq: Status: Active Protocol: Activity Type Activity Date Activity User E-sign Co-sign Detail Recorded Client Recorded Date Recorded By Document 07/01/24 09:34 ML [id number] 07/01/24 09:40 ML Document 07/15/24 09:37 DL [id number] 07/15/24 09:43 DL 07/01/24 07/15/24 09:34 09:37 Wound Center Nurse 1 #1 - L GROIN -Current Size (cm) - Length 7 7 -Current Size (cm) - Width 1.5 1 -Current Size (cm) - Depth 0.1 0.1 -Total Square Cm 10.5 7 -Photo Taken Yes -Exudate Amt Medium Medium -Exudate Type Serosanguineous Serosanguineous -Wound Margin Distinct, Distinct, Outline Outline Attached Attached -Granulation Amt Medium (34-66%) Large (67-100%) -Granulation Quality Red -Necrosis Amt Medium (34-66%) Small (1-33%) -Necrotic Tissue Type Adherent Slough Adherent Slough -Structure Exposed N/A -Texture (Helen-wound Skin Appearance) Assessed Scarring -Moisture (Helen-wound Skin Appearance) Assessed No Abnormality -Color (Helen-wound Skin Appearance) Assessed No Abnormality -Temperature (Helen-wound Skin No Abnormality No Abnormality Appearance) (Pt Warm) (Pt Warm) -Tenderness on Palpation (Helen-wound No No Skin Appearance) -Ulcer Cleansing Soap and Water Soap and Water -Foul Odor after Cleansing No No -Anesthetic Used 5% Lidocaine 5% Lidocaine Gel Gel WC - Nurse 2 - General Ulcer CM Notes Start: 07/01/24 09:34 Freq: Status: Active Protocol: Activity Type Activity Date Activity User E-sign Co-sign Detail Recorded Client Recorded Date Recorded By Document 07/01/24 09:51 [id number] 07/01/24 09:55 Document 07/15/24 10:23 [id number] 07/15/24 10:25 07/01/24 07/15/24 09:51 10:23 Wound Center Nurse 2 #1 - L GROIN -Time 09:51 10:25 -Correct Patient Yes Yes -Correct Side, Site, Position Yes Yes -Correct Procedure Yes Yes -Procedure Performed Yes Yes -Type of Procedure Debridement Debridement -Clinical Debridement Subcutaneous Subcutaneous -Tissue Removed Subcutaneous Subcutaneous -Post Debridement (cm) - Length 7.5 8 -Post Debridement (cm) - Width 2.4 1 -Post Debridement (cm) - Depth 0.1 0.1 -Total Square (Post) (cm) 18.00 8 -Area of Debridement (cm) - Length 7.5 8 -Area of Debridement (cm) - Width 2.4 1 -Total Square (Area) (cm) 18.00 8 -Tunneling No No -Undermining/Tunneling No No -Circular Undermining No No -Wound/Ulcer Outcome Not Healed Not Healed -Ulcer Cleansing Rinsed/ Rinsed/ Irrigated with Irrigated with Saline Saline -Foul Odor after Cleansing No No -Bioengineered Tissue No No -Bleeding Controlled with Pressure Pressure -Treatment Response Procedure Procedure Tolerated Well Tolerated Well -Offloading No -Debridement - Subq, 1st 20sq cm Yes Yes Pain Scale: 0-10 Numeric Is Patient Pain Free? Yes Yes - Nurse 3 - General Ulcer D/C NN Start: 07/01/24 09:34 Freq: Status: Active Protocol: Activity Type Activity Date Activity User E-sign Co-sign Detail Recorded Client Recorded Date Recorded By Document 07/01/24 10:01 [id number] 07/01/24 10:02 ML Document 07/15/24 10:37 [facility] [id number] 07/15/24 10:37 [facility] 07/01/24 07/15/24 10:01 10:37 Wound Care Center Nurse 3 #1 - L GROIN -Ulcer Cleansing Rinsed/ Rinsed/ Irrigated with Irrigated with Saline Saline -Foul Odor after Cleansing No -Primary Dressing Applied Aquacel AG 4x4 -Primary Dressing Applied Aquacel AG 4x4 -Other Dressing abd -Primary Dressing Covered/Secured with Dry Gauze, Secured with Tape -Aquacel AG 4x4 1 1 Treatment Response Procedure Tolerated Well Pain Scale: 0-10 Numeric Is Patient Pain Free? Yes Yes - Visit Discharge Discharge Condition Stable Ambulatory Status Ambulatory Transportation Private Auto Assessment/Plan Assessment/Plan (1) Ulcer of left groin with fat layer exposed: CODE(S): L98.492 - Non-pressure chronic ulcer of skin of other sites with fat layer exposed (2) COPD (chronic obstructive pulmonary disease): CODE(S): J44.9 - Chronic obstructive pulmonary disease, unspecified (3) HTN (hypertension): CODE(S): I10 - Essential (primary) hypertension PLAN: Plan Patient evaluated at the wound healing center. She and her are doing a nice job with her wound care. Wound care - Aquacel-Ag topped with ABD daily and as needed. Wash wound with soap and water daily. Patient states her blood sugars are good. Discussed importance of increased protein intake to assist with wound healing. Follow up two weeks.
== END 2024-07-19 23:59 | disposition home or self-care (01) ==
LOC: WC 09:45
PROVIDERS: PCP Physician Assistant; Visit Provider Nurse Practitioner Family
DX: E11.622 Type 2 diabetes mellitus with other skin ulcer (principal); L98.492 Non-pressure chronic ulcer of skin of other sites with fat layer exposed; J44.9 Chronic obstructive pulmonary disease, unspecified; E66.01 Morbid (severe) obesity due to excess calories; Z68.42 Body mass index [BMI] 45.0-49.9, adult; N76.4 Abscess of vulva; I10 Essential (primary) hypertension; F17.210 Nicotine dependence, cigarettes, uncomplicated; E78.5 Hyperlipidemia, unspecified
CPT/HCPCS: 11042; 97803

== ENCOUNTER 2024-08-16 09:45 | Outpatient (RCR) | payer MEDICAID, SELFPAY ==
[2024-07-20 01:12] VITALS: BP 156/92; PULSE 78; RESP 18; TEMP 36.1; BMI 46.5
[2024-07-29 09:45] VITALS: BP 158/92; PULSE 91; RESP 14; TEMP 36.4; BMI 46.5
--- NOTE | 2024-07-29 12:16 | PN.PCM_ITS ---
History of Present Illness Date of Service: 07/29/24 Chief Complaint: Left labial wound after operative debridement History of Wound: Taylor Velásquez is an 49-year-old female who presents to the wound healing center today for continuation of care of her left labial wound. She states that she had cellulitis and an abscess that she went to [facility] in [place] and they did not I&D in the ER put her on some antibiotics and sent her home. 3 days later on 05/05/24, she return to the ER with i ncreased erythema, pain, and fevers. She has uncontrolled diabetes. Her most recent hemoglobin A1c is 10.2. She is morbidly obese with a BMI of 46. She also smokes cigarettes. She was taken to the OR on 05/05/[address] Donna Mcallister for Necrotizing soft tissue infection of left groin (18 x 11 x 5 cm). Deep tissue cultures were positive for few mixed Anaerobic bacteria. She was discharged home on 05/08/24 doing Dry sterile gauze dressings to the wound 3 x per day. She was discharged on Augmentin x 10 days. She has a history of DM, HTN, hyperlipidemia, GERD, COPD, anxiety/depression. Today she is denying fever, chills, nausea or vomiting. She comes in for further evaluation and treatment of her left labial wound. Progress of Wound: Left labial ulcer is much smaller. The ulcer bed is beefy pink. There is some hypergranulation tissue present. Helen wound is clear. She denies any issues with the wound care. Her biggest concern today is she has bilateral lower extremity edema and her left leg is weeping serous fluid. She has +4 pitting edema on her bilateral lower legs. She states that it just started a couple days ago and it is uncomforatable. There is no erythema or warmth present, no clincal sign of infection. Objective Data Objective Data Vital Signs: Vital Signs Temp Pulse Resp BP 97.5 F L 91 14 158/92 H 07/29/24 09:45 07/29/24 09:45 07/29/24 09:45 07/29/24 09:45 Weight: 287 lb Body Mass Index (BMI) 46.5 Charges/Coding Procedures Integumentary 111xxx-113xx: 06751 Kaelyn subq tissue 20 sq cm/< Debridement Note Debridement Note Wound debrided: Labial/groin ulcer Laterality: Left Wound Grade/Stage: Stage III Type of Debridement: Excisional debridement Anesthesia Used: 5% Lidocaine Gel Depth: Down to and including healthy tissue and in the subcutaneous layer Percentage of wound debrided: 100 Instrument Used: 5mm curette Tissue Removed: Non viable tissue and slough and hypergranulation tissue. Severity: Fat Layer Exposed Amount of bleeding with debridement: Mild Bleeding Controlled with: Pressure and Compression and gauze Patient tolerated procedure: Patient tolerated procedure well Post-Debridement Measurements and Additional Note: Post-Debridement Measurements/Treatment - Nurse 1 - General Ulcer Assessment Start: 07/29/24 09:45 Freq: Status: Active Protocol: ELOISA Activity Type Activity Date Activity User E-sign Co-sign Detail Recorded Client Recorded Date Recorded By Document 07/29/24 09:45 ML [id number] 07/29/24 09:53 ML 07/29/24 09:45 WC - Today's Visit Information Type of service Follow-up Visit (Physician/MANAGER PRODUCT MANAGEMENT ) Arrival Mode Ambulatory Transfer Assistance None Patient Identification Verified (Name & Yes ) Patient Requires Transmission-Based No Precautions Height and Weight Body Mass Index (BMI) 46.5 BMI Classification Obese Vital Signs Temperature (97.8 F-99.1 F) 97.5 F L Temperature Source Temporal Pulse Rate (60-100) 91 Pulse Location Monitor Respiratory Rate (12-18) 14 Respiratory rate source Observation Blood Pressure (90/60-120/80) 158/92 H Blood Pressure Mean (mm Hg) 114 Source Monitor Position Sitting Blood Pressure Location Left Arm History Since Last Visit- (Skip if this is Patient's initial visit) Have you changed medications since your No last visit? Any new allergies or adverse reactions No Had a fall/change in ADL's that may No increase risk of falls Signs or symptoms of abuse and/or No neglect since last visit Have you been in the hospital since your No last visit? Has dressing in place as prescribed Yes Has compression in place as prescribed N/A Has offloadiing in place as prescribed N/A Experienced any changes in pain level or No management Left Footwear Regular Shoe Right Footwear Regular Shoe Pain Scale: 0-10 Numeric Is Patient Pain Free? Yes - Nurse 1 - General Ulcer Measurement Start: 07/29/24 09:45 Freq: Status: Active Protocol: Activity Type Activity Date Activity User E-sign Co-sign Detail Recorded Client Recorded Date Recorded By Document 07/29/24 09:45 ML [id number] 07/29/24 09:53 ML 07/29/24 09:45 Wound Center Nurse 1 #1 - L GROIN -Current Size (cm) - Length 6 -Current Size (cm) - Width 1 -Current Size (cm) - Depth 0.1 -Total Square Cm 6 -Exudate Amt Medium -Exudate Type Serosanguineous -Wound Margin Distinct, Outline Attached -Granulation Amt Medium (34-66%) -Slough/Fibrin Yes -Necrosis Amt Medium (34-66%) -Necrotic Tissue Type Adherent Slough -Texture (Helen-wound Skin Appearance) Assessed -Moisture (Helen-wound Skin Appearance) Assessed -Color (Helen-wound Skin Appearance) Assessed -Temperature (Helen-wound Skin No Abnormality Appearance) (Pt Warm) -Tenderness on Palpation (Helen-wound No Skin Appearance) -Ulcer Cleansing Soap and Water -Foul Odor after Cleansing No -Anesthetic Used 5% Lidocaine Gel Right Calf (cm) 54.5 Right Ankle (cm) 34 Left Calf (cm) 56.5 Left Ankle (cm) 34 WC - Nurse 2 - General Ulcer CM Notes Start: 07/29/24 09:45 Freq: Status: Active Protocol: Activity Type Activity Date Activity User E-sign Co-sign Detail Recorded Client Recorded Date Recorded By Document 07/29/24 10:27 SANTIAGO [id number] 07/29/24 10:29 JF Edit Result 07/29/24 10:27 JF (1) [id number] 07/29/24 10:31 JF (1) 2-left hahn - Correct Patient => Yes - Correct Side, Site, Position => No - Correct Procedure => No - Procedure Performed => No - Post Debridement (cm) - Length => 0.5 - Post Debridement (cm) - Width => 0.3 - Post Debridement (cm) - Depth => 0.1 - Total Square (Post) (cm) => 0.15 - Area of Debridement (cm) - Length => 0.5 - Area of Debridement (cm) - Width => 0.3 - Total Square (Area) (cm) => 0.15 - Wound/Ulcer Outcome => Not Healed 07/29/24 10:27 Wound Center Nurse 2 2-left hahn -Correct Patient Yes -Correct Side, Site, Position No -Correct Procedure No -Procedure Performed No -Post Debridement (cm) - Length 0.5 -Post Debridement (cm) - Width 0.3 -Post Debridement (cm) - Depth 0.1 -Total Square (Post) (cm) 0.15 -Area of Debridement (cm) - Length 0.5 -Area of Debridement (cm) - Width 0.3 -Total Square (Area) (cm) 0.15 -Wound/Ulcer Outcome Not Healed #1 - L GROIN -Time 10:27 -Correct Patient Yes -Correct Side, Site, Position Yes -Correct Procedure Yes -Procedure Performed Yes -Type of Procedure Debridement -Clinical Debridement Subcutaneous -Tissue Removed Dermis -Post Debridement (cm) - Length 6.3 -Post Debridement (cm) - Width 1 -Post Debridement (cm) - Depth 0.1 -Total Square (Post) (cm) 6.3 -Area of Debridement (cm) - Length 6.3 -Area of Debridement (cm) - Width 1 -Total Square (Area) (cm) 6.3 -Tunneling No -Undermining/Tunneling No -Circular Undermining No -Wound/Ulcer Outcome Not Healed -Ulcer Cleansing Rinsed/ Irrigated with Saline -Foul Odor after Cleansing No -Bioengineered Tissue No -Bleeding Controlled with Pressure -Treatment Response Procedure Tolerated Well -Offloading No -Debridement - Subq, 1st 20sq cm Yes Pain Scale: 0-10 Numeric Is Patient Pain Free? Yes - Nurse 3 - General Ulcer D/C NN Start: 07/29/24 09:45 Freq: Status: Active Protocol: Activity Type Activity Date Activity User E-sign Co-sign Detail Recorded Client Recorded Date Recorded By Document 07/29/24 10:41 KW [id number] 07/29/24 10:43 KW 07/29/24 10:41 Wound Care Center Nurse 3 2-left hahn -Other Dressing only abds -Primary Dressing Covered/Secured with Dry Gauze #1 - L GROIN -Primary Dressing Applied Aquacel AG 4x4 -Primary Dressing Covered/Secured with Dry Gauze -Aquacel AG 4x4 1 Right -Compression Wrap Asael Wrap Left -Compression Wrap Asael Wrap Pain Scale: 0-10 Numeric Is Patient Pain Free? Yes - Visit Discharge Discharge Condition Stable Ambulatory Status Ambulatory Transportation Private Auto Medication Reconcilliation completed & No provided to patient/care provider Clinical Summary of Care Provided Yes Assessment/Plan Assessment/Plan (1) Ulcer of left groin with fat layer exposed: CODE(S): L98.492 - Non-pressure chronic ulcer of skin of other sites with fat layer exposed (2) Bilateral lower extremity edema: CODE(S): R60.0 - Localized edema (3) COPD (chronic obstructive pulmonary disease): CODE(S): J44.9 - Chronic obstructive pulmonary disease, unspecified (4) HTN (hypertension): CODE(S): I10 - Essential (primary) hypertension PLAN: Plan Patient evaluated at the wound healing center. She and her are doing a nice job with her wound care. She has significant lower extremity edema that started a couple days ago. Unsure of the cause. Discussed low sodium diet. Wound care - Aquacel-Ag topped with ABD daily and as needed. Wash wound with soap and water daily. Left anterior leg has small area that is oozing serous drainage, she should cover that with an ABD or super absorber to help contain the drainage. For her bilateral lower extremity edema, will start with ASAEL wraps to slowly compress her legs. Instructed her that if the ASAEL wraps slip and fall, she needs to rewrap them. Patient states her blood sugars are good. Discussed importance of increased protein intake to assist with wound healing. Also she needs to avoid sodium intake to prevent her legs from swelling. Discussed what foods have hidden sodium. She verbalized understanding. Instructed to call or come in sooner if develop any concerns. If she develops issue with breathing/SOB, she should contact PCP or go to ED. Follow up one week.
[2024-08-12 09:33] VITALS: BP 157/96; PULSE 94; RESP 18; TEMP 36; BMI 46.5
--- NOTE | 2024-08-12 12:39 | PCM.WC.PN ---
History of Present Illness Date of Service: 08/12/24 Chief Complaint: Left labial wound after operative debridement History of Wound: Taylor Velásquez is an 49-year-old female who presents to the wound healing center today for continuation of care of her left labial wound. She states that she had cellulitis and an abscess that she went to [facility] in [place] and they did not I&D in the ER put her on some antibiotics and sent her home. 3 days later on 05/05/24, she return to the ER with increased erythema, pain, and fevers. She has uncontrolled diabetes. Her most recent hemoglobin A1c is 10.2. She is morbidly obese with a BMI of 46. She also smokes cigarettes. She was taken to the OR on 05/05/[address] Donna Mcallister for Necrotizing soft tissue infection of left groin (18 x 11 x 5 cm). Deep tissue cultures were positive for few mixed Anaerobic bacteria. She was discharged home on 05/08/24 doing Dry sterile gauze dressings to the wound 3 x per day. She was discharged on Augmentin x 10 days. She has a history of DM, HTN, hyperlipidemia, GERD, COPD, anxiety/depression. Today she is denying fever, chills, nausea or vomiting. She comes in for further evaluation and treatment of her left labial wound. Progress of Wound: Left labial ulcer is much smaller. It is only open on the most distal portion of the ulcer. The ulcer bed is beefy pink. There is some hypergranulation tissue present. Helen wound is clear. She denies any issues with the wound care. She has concern for an firm area on left pubic area. It is approximately 1 cm diameter, it is firm and tender but has not come to the surface. Recommend warm compresses to try and bring it to a head to get it to drain. She has bilateral lower extremity edema but it is not as severe as it was at her previous appointment. There is no weeping. The edema is down to +3 bilateral lower legs. There is no erythema or warmth present. She has not been consistently wearing her compression. Objective Data Objective Data Vital Signs: Vital Signs Temp Pulse Resp BP 96.8 F L 94 18 157/96 H 08/12/24 09:33 08/12/24 09:33 08/12/24 09:33 08/12/24 09:33 Weight: 287 lb Body Mass Index (BMI) 46.5 Charges/Coding Procedures Integumentary 111xxx-113xx: 43423 Kaelyn subq tissue 20 sq cm/< Debridement Note Debridement Note Wound debrided: Labial/groin ulcer Laterality: Left Wound Grade/Stage: Stage III Type of Debridement: Excisional debridement Anesthesia Used: 5% Lidocaine Gel Depth: Down to and including healthy tissue and in the subcutaneous layer Percentage of wound debrided: 100 Instrument Used: 5mm curette Tissue Removed: Non viable tissue and slough. Severity: Fat Layer Exposed Amount of bleeding with debridement: Mild Bleeding Controlled with: Pressure and Compression and gauze Patient tolerated procedure: Patient tolerated procedure well Post-Debridement Measurements and Additional Note: Post-Debridement Measurements/Treatment - Nurse 1 - General Ulcer Assessment Start: 07/29/24 09:45 Freq: Status: Active Protocol: TARYN.ZACKARY Activity Type Activity Date Activity User E-sign Co-sign Detail Recorded Client Recorded Date Recorded By Document 07/29/24 09:45 ML [id number] 07/29/24 09:53 ML Document 08/12/24 09:33 DL [id number] 08/12/24 09:46 DL 07/29/24 08/12/24 09:45 09:33 - Today's Visit Information Type of service Follow-up Visit Follow-up Visit (Physician/STEAMFITTER SUPERVISOR (Physician/STEAMFITTER SUPERVISOR ) ) Arrival Mode Ambulatory Ambulatory Transfer Assistance None None Patient Identification Verified (Name & Yes Yes ) Patient Requires Transmission-Based No No Precautions Height and Weight Body Mass Index (BMI) 46.5 46.5 BMI Classification Obese Obese Vital Signs Temperature (97.8 F-99.1 F) 97.5 F L 96.8 F L Temperature Source Temporal Temporal Pulse Rate (60-100) 91 94 Pulse Location Monitor Monitor Respiratory Rate (12-18) 14 18 Respiratory rate source Observation Blood Pressure (90/60-120/80) 158/92 H 157/96 H Blood Pressure Mean (mm Hg) 114 116 Source Monitor Monitor Position Sitting Blood Pressure Location Left Arm History Since Last Visit- (Skip if this is Patient's initial visit) Have you changed medications since your No No last visit? Any new allergies or adverse reactions No No Had a fall/change in ADL's that may No No increase risk of falls Signs or symptoms of abuse and/or No No neglect since last visit Have you been in the hospital since your No No last visit? Has dressing in place as prescribed Yes Yes Has compression in place as prescribed N/A Yes Has offloadiing in place as prescribed N/A N/A Experienced any changes in pain level or No No management Left Footwear Regular Shoe Right Footwear Regular Shoe Pain Scale: 0-10 Numeric Is Patient Pain Free? Yes Yes WC - Nurse 1 - General Ulcer Measurement Start: 07/29/24 09:45 Freq: Status: Active Protocol: Activity Type Activity Date Activity User E-sign Co-sign Detail Recorded Client Recorded Date Recorded By Document 07/29/24 09:45 ML [id number] 07/29/24 09:53 ML Document 08/12/24 09:33 DL [id number] 08/12/24 09:46 DL 07/29/24 08/12/24 09:45 09:33 Wound Center Nurse 1 2-left hahn -Current Size (cm) - Length 0.1 -Current Size (cm) - Width 0.1 -Current Size (cm) - Depth 0.1 -Total Square Cm 0.01 -Exudate Amt None Present -Wound Margin Flat & Intact -Granulation Amt Small (1-33%) -Granulation Quality [place] -Necrosis Amt None Present (0 %) -Structure Exposed N/A -Texture (Helen-wound Skin Appearance) Scarring -Moisture (Helen-wound Skin Appearance) No Abnormality -Color (Helen-wound Skin Appearance) No Abnormality -Ulcer Cleansing Rinsed/ Irrigated with Saline -Foul Odor after Cleansing No #1 - L GROIN -Current Size (cm) - Length 6 0.6 -Current Size (cm) - Width 1 2.2 -Current Size (cm) - Depth 0.1 0.2 -Total Square Cm 6 1.32 -Exudate Amt Medium Medium -Exudate Type Serosanguineous Serosanguineous -Wound Margin Distinct, Distinct, Outline Outline Attached Attached -Granulation Amt Medium (34-66%) Medium (34-66%) -Granulation Quality Red -Slough/Fibrin Yes -Necrosis Amt Medium (34-66%) Medium (34-66%) -Necrotic Tissue Type Adherent Slough Adherent Slough -Structure Exposed N/A -Texture (Helen-wound Skin Appearance) Assessed Scarring -Moisture (Helen-wound Skin Appearance) Assessed No Abnormality -Color (Helen-wound Skin Appearance) Assessed No Abnormality -Temperature (Helen-wound Skin No Abnormality Appearance) (Pt Warm) -Tenderness on Palpation (Helen-wound No No Skin Appearance) -Ulcer Cleansing Soap and Water Soap and Water -Foul Odor after Cleansing No No -Anesthetic Used 5% Lidocaine 5% Lidocaine Gel Gel Right Calf (cm) 54.5 54 Right Ankle (cm) 34 28.7 Left Calf (cm) 56.5 53.3 Left Ankle (cm) 34 29.7 WC - Nurse 2 - General Ulcer CM Notes Start: 07/29/24 09:45 Freq: Status: Active Protocol: Activity Type Activity Date Activity User E-sign Co-sign Detail Recorded Client Recorded Date Recorded By Document 07/29/24 10:27 [email or web address] [id number] 07/29/24 10:29 Edit Result 07/29/24 10:27 JF (1) [id number] 07/29/24 10:31 JF Document 08/12/24 10:17 JF [id number] 08/12/24 10:18 (1) 2-left hahn - Correct Patient => Yes - Correct Side, Site, Position => No - Correct Procedure => No - Procedure Performed => No - Post Debridement (cm) - Length => 0.5 - Post Debridement (cm) - Width => 0.3 - Post Debridement (cm) - Depth => 0.1 - Total Square (Post) (cm) => 0.15 - Area of Debridement (cm) - Length => 0.5 - Area of Debridement (cm) - Width => 0.3 - Total Square (Area) (cm) => 0.15 - Wound/Ulcer Outcome => Not Healed 07/29/24 08/12/24 10:27 10:17 Wound Center Nurse 2 2-left hahn -Correct Patient Yes No -Correct Side, Site, Position No No -Correct Procedure No No -Procedure Performed No No -Post Debridement (cm) - Length 0.5 0 -Post Debridement (cm) - Width 0.3 0 -Post Debridement (cm) - Depth 0.1 0 -Total Square (Post) (cm) 0.15 0 -Area of Debridement (cm) - Length 0.5 0 -Area of Debridement (cm) - Width 0.3 0 -Total Square (Area) (cm) 0.15 0 -Wound/Ulcer Outcome Not Healed Healed- Epithelialized #1 - L GROIN -Time 10:27 10:17 -Correct Patient Yes Yes -Correct Side, Site, Position Yes Yes -Correct Procedure Yes Yes -Procedure Performed Yes Yes -Type of Procedure Debridement Debridement -Clinical Debridement Subcutaneous Subcutaneous -Tissue Removed Dermis Subcutaneous -Post Debridement (cm) - Length 6.3 2.7 -Post Debridement (cm) - Width 1 0.8 -Post Debridement (cm) - Depth 0.1 0.2 -Total Square (Post) (cm) 6.3 2.16 -Area of Debridement (cm) - Length 6.3 2.7 -Area of Debridement (cm) - Width 1 0.8 -Total Square (Area) (cm) 6.3 2.16 -Tunneling No No -Undermining/Tunneling No No -Circular Undermining No No -Wound/Ulcer Outcome Not Healed Not Healed -Ulcer Cleansing Rinsed/ Rinsed/ Irrigated with Irrigated with Saline Saline -Foul Odor after Cleansing No No -Bioengineered Tissue No No -Bleeding Controlled with Pressure Pressure -Treatment Response Procedure Procedure Tolerated Well Tolerated Well -Offloading No No -Debridement - Subq, 1st 20sq cm Yes Yes Pain Scale: 0-10 Numeric Is Patient Pain Free? Yes Yes - Nurse 3 - General Ulcer D/C NN Start: 07/29/24 09:45 Freq: Status: Active Protocol: Activity Type Activity Date Activity User E-sign Co-sign Detail Recorded Client Recorded Date Recorded By Document 07/29/24 10:41 KW [id number] 07/29/24 10:43 KW Document 08/12/24 10:31 KW [id number] 08/12/24 10:32 KW 07/29/24 08/12/24 10:41 10:31 Wound Care Center Nurse 3 2-left hahn -Other Dressing only abds -Primary Dressing Covered/Secured with Dry Gauze #1 - L GROIN -Primary Dressing Applied Aquacel AG 4x4 -Primary Dressing Covered/Secured with Dry Gauze -Aquacel AG 4x4 1 Right -Compression Wrap Asael Wrap Left -Compression Wrap Asael Wrap Pain Scale: 0-10 Numeric Is Patient Pain Free? Yes Yes - Visit Discharge Discharge Condition Stable Stable Ambulatory Status Ambulatory Ambulatory Transportation Private Auto Private Auto Medication Reconcilliation completed & No No provided to patient/care provider Clinical Summary of Care Provided Yes Yes #1 - L GROIN -Primary Dressing Applied Aquacel AG 4x4 -Aquacel AG 4x4 1 BLE -Multi-Layered Wrap Application Multi-Layer Comp - Bilat ($ ) Assessment/Plan Assessment/Plan (1) Ulcer of left groin with fat layer exposed: CODE(S): L98.492 - Non-pressure chronic ulcer of skin of other sites with fat layer exposed (2) Bilateral lower extremity edema: CODE(S): R60.0 - Localized edema (3) COPD (chronic obstructive pulmonary disease): CODE(S): J44.9 - Chronic obstructive pulmonary disease, unspecified (4) HTN (hypertension): CODE(S): I10 - Essential (primary) hypertension PLAN: Plan Patient evaluated at the wound healing center. She and her are doing a nice job with her wound care. Her lower extremity edema has improve. Continue compression. Will start 3M 2 layer wraps on bilateral lower extremities . Wound care - Left groin Aquacel-Ag topped with ABD daily and as needed. Wash wound with soap and water daily. She has new firm area on left pubis area that is tender but not close enough to the surface haylee. She is concerned because this was how her left groin ulcer started and required a debridement. Instructed her to start warm compresses 2-3 times per day or do a sitz bath to help bring the tender area to the surface. Will start her on Doxycycline twice daily. Instructed her to follow up with PCP or go to the ED if the tenderness, redness or firmness worsens or she develops any signs of infection such as fever, chills, nausea or vomiting. Discussed importance of increased protein intake to assist with wound healing. Also she needs to avoid sodium intake to prevent her legs from swelling. Discussed what foods have hidden sodium. She verbalized understanding. Instructed to call or come in sooner if develop any concerns. Follow up for a nurses visit at the end of the week to have 3M 2 layer compression wraps changed and to check on how she is tolerating them. Follow up one week with me.
[2024-08-16 09:48] VITALS: BP 153/94; PULSE 78; RESP 16; TEMP 35.3; BMI 46.5
== END 2024-08-16 23:59 | disposition home or self-care (01) ==
LOC: WC 09:45
PROVIDERS: PCP Physician Assistant; Visit Provider Nurse Practitioner Family
DX: E11.622 Type 2 diabetes mellitus with other skin ulcer (principal); L98.492 Non-pressure chronic ulcer of skin of other sites with fat layer exposed; J44.9 Chronic obstructive pulmonary disease, unspecified; E66.01 Morbid (severe) obesity due to excess calories; Z68.42 Body mass index [BMI] 45.0-49.9, adult; E78.5 Hyperlipidemia, unspecified; R60.0 Localized edema; F17.210 Nicotine dependence, cigarettes, uncomplicated; I10 Essential (primary) hypertension
CPT/HCPCS: 11042; 29581; 97803

== ENCOUNTER 2024-08-28 13:51 | Outpatient (RCR) | payer MEDICAID, SELFPAY ==
[2024-08-17 01:55] VITALS: BP 153/94; PULSE 78; RESP 16; TEMP 35.3; BMI 46.5
[2024-08-28 14:04] VITALS: BP 159/103; PULSE 78; RESP 18; TEMP 35.6; BMI 46.5
--- NOTE | 2024-08-28 16:01 | PCM.WC.PN ---
History of Present Illness Date of Service: 08/28/24 Chief Complaint: Left labial wound after operative debridement History of Wound: Taylor Velásquez is an 49-year-old female who presents to the wound healing center today for continuation of care of her left labial wound. She states that she had cellulitis and an abscess that she went to [facility] in [place] and they did not I&D in the ER put her on some antibiotics and sent her home. 3 days later on 05/05/24, she return to the ER with increased erythema, pain, and fevers. She has uncontrolled diabetes. Her most recent hemoglobin A1c is 10.2. She is morbidly obese with a BMI of 46. She also smokes cigarettes. She was taken to the OR on 05/05/[address] Donna Mcallister for Necrotizing soft tissue infection of left groin (18 x 11 x 5 cm). Deep tissue cultures were positive for few mixed Anaerobic bacteria. She was discharged home on 05/08/24 doing Dry sterile gauze dressings to the wound 3 x per day. She was discharged on Augmentin x 10 days. She has a history of DM, HTN, hyperlipidemia, GERD, COPD, anxiety/depression. Today she is denying fever, chills, nausea or vomiting. She comes in for further evaluation and treatment of her left labial wound. Progress of Wound: Left labial ulcer is smaller. It is open only on the most distal portion of the ulcer, the rest of the ulcer has healed. The ulcer bed is beefy pink. Helen wound is clear. She denies any issues with the wound care. The area of concern she had at her previous visit on her left pubic area has resolved. She completed the antibiotics and used warm compresses to help with this area. Her lower extremity edema has resolved with the 3 M 2 layer wraps. She has noticed a huge difference in her legs and is able to move them and walk better. Will switch her to compression stockings to help control her edema. Objective Data Objective Data Vital Signs: Vital Signs Temp Pulse Resp BP O2 Del Method 96.0 F L 78 18 159/103 H Room Air 08/28/24 14:04 08/28/24 14:04 08/28/24 14:04 08/28/24 14:04 08/28/24 14:04 Oxygen Delivery Method Room Air Weight: 287 lb Body Mass Index (BMI) 46.5 Charges/Coding Procedures Integumentary 111xxx-113xx: 24180 Kaelyn subq tissue 20 sq cm/< Debridement Note Debridement Note Wound debrided: Labial/groin ulcer Laterality: Left Wound Grade/Stage: Stage III Type of Debridement: Excisional debridement Anesthesia Used: 5% Lidocaine Gel Depth: Down to and including healthy tissue and in the subcutaneous layer Percentage of wound debrided: 100 Instrument Used: 5mm curette Tissue Removed: Non viable tissue and slough. Severity: Fat Layer Exposed Amount of bleeding with debridement: Mild Bleeding Controlled with: Pressure and Compression and gauze Patient tolerated procedure: Patient tolerated procedure well Post-Debridement Measurements and Additional Note: Post-Debridement Measurements/Treatment - Nurse 1 - General Ulcer Assessment Start: 08/28/24 14:03 Freq: Status: Active Protocol: ELOISA Activity Type Activity Date Activity User E-sign Co-sign Detail Recorded Client Recorded Date Recorded By Document 08/28/24 14:04 [id number] 08/28/24 14:19 KW 08/28/24 14:04 WC - Today's Visit Information Type of service Follow-up Visit (Physician/VENDING MECHANIC ) Arrival Mode Ambulatory Patient Identification Verified (Name & Yes ) Height and Weight Body Mass Index (BMI) 46.5 BMI Classification Obese Vital Signs Temperature (97.8 F-99.1 F) 96.0 F L Temperature Source Temporal Pulse Rate (60-100) 78 Pulse Location Monitor Respiratory Rate (12-18) 18 Respiratory rate source Observation Oxygen Delivery Method Room Air Blood Pressure (90/60-120/80) 159/103 H Blood Pressure Mean (mm Hg) 121 Source Monitor Position Sitting Blood Pressure Location Right Arm History Since Last Visit- (Skip if this is Patient's initial visit) Have you changed medications since your No last visit? Any new allergies or adverse reactions No Had a fall/change in ADL's that may No increase risk of falls Signs or symptoms of abuse and/or No neglect since last visit Have you been in the hospital since your No last visit? Has dressing in place as prescribed Yes Has compression in place as prescribed Yes Has offloadiing in place as prescribed N/A Experienced any changes in pain level or No management Left Footwear Regular Shoe Right Footwear Regular Shoe Pain Scale: 0-10 Numeric Is Patient Pain Free? Yes - Nurse 1 - General Ulcer Measurement Start: 08/28/24 14:03 Freq: Status: Active Protocol: Activity Type Activity Date Activity User E-sign Co-sign Detail Recorded Client Recorded Date Recorded By Document 08/28/24 14:04 KW [id number] 08/28/24 14:19 KW 08/28/24 14:04 Wound Center Nurse 1 #1 - L GROIN -Current Size (cm) - Length 7.5 -Current Size (cm) - Width 0.5 -Current Size (cm) - Depth 0.3 -Total Square Cm 3.75 -Exudate Amt Small -Exudate Type Serosanguineous -Wound Margin Distinct, Outline Attached -Granulation Amt Medium (34-66%) -Granulation Quality [place],Red -Necrosis Amt Small (1-33%) -Necrotic Tissue Type Adherent Slough -Texture (Helen-wound Skin Appearance) Assessed -Moisture (Helen-wound Skin Appearance) Assessed -Color (Helen-wound Skin Appearance) Assessed, Erythema -Temperature (Helen-wound Skin No Abnormality Appearance) (Pt Warm) -Tenderness on Palpation (Helen-wound No Skin Appearance) -Ulcer Cleansing Rinsed/ Irrigated with Saline -Foul Odor after Cleansing No -Anesthetic Used 5% Lidocaine Gel Right Calf (cm) 49.5 Right Ankle (cm) 28.3 Left Calf (cm) 48 Left Ankle (cm) 28 - Nurse 2 - General Ulcer CM Notes Start: 08/28/24 14:03 Freq: Status: Active Protocol: Activity Type Activity Date Activity User E-sign Co-sign Detail Recorded Client Recorded Date Recorded By Document 08/28/24 14:47 [id number] 08/28/24 14:50 GM 08/28/24 14:47 Wound Center Nurse 2 #1 - L GROIN -Time 14:47 -Correct Patient Yes -Correct Side, Site, Position Yes -Correct Procedure Yes -Procedure Performed Yes -Type of Procedure Debridement -Clinical Debridement Subcutaneous -Tissue Removed Subcutaneous -Post Debridement (cm) - Length 1.8 -Post Debridement (cm) - Width 1.0 -Post Debridement (cm) - Depth 0.2 -Total Square (Post) (cm) 1.80 -Area of Debridement (cm) - Length 1.8 -Area of Debridement (cm) - Width 1.0 -Total Square (Area) (cm) 1.80 -Tunneling No -Undermining/Tunneling No -Circular Undermining No -Wound/Ulcer Outcome Not Healed -Ulcer Cleansing Rinsed/ Irrigated with Saline -Foul Odor after Cleansing No -Bioengineered Tissue No -Bleeding Controlled with Pressure -Treatment Response Procedure Tolerated Well -Debridement - Subq, 1st 20sq cm Yes Pain Scale: 0-10 Numeric Is Patient Pain Free? Yes WC - Nurse 3 - General Ulcer D/C NN Start: 08/28/24 14:03 Freq: Status: Active Protocol: Activity Type Activity Date Activity User E-sign Co-sign Detail Recorded Client Recorded Date Recorded By Document 08/28/24 15:02 KW [id number] 08/28/24 15:03 KW 08/28/24 15:02 Wound Care Center Nurse 3 #1 - L GROIN -Primary Dressing Applied Aquacel AG 4x4 -Primary Dressing Covered/Secured with Dry Gauze -Aquacel AG 4x4 1 RLE -Tubular Bandage Single Layer -Size of Tubigrip Used Size E -Size E ($) 1 LLE -Tubular Bandage Single Layer -Size of Tubigrip Used Size E -Size E ($) 1 Pain Scale: 0-10 Numeric Is Patient Pain Free? Yes WC - Visit Discharge Discharge Condition Stable Transportation Private Auto Medication Reconcilliation completed & No provided to patient/care provider Clinical Summary of Care Provided Yes Notes: MEASURED FOR CIRCAIDS Assessment/Plan Assessment/Plan (1) Ulcer of left groin with fat layer exposed: CODE(S): L98.492 - Non-pressure chronic ulcer of skin of other sites with fat layer exposed (2) Bilateral lower extremity edema: CODE(S): R60.0 - Localized edema (3) COPD (chronic obstructive pulmonary disease): CODE(S): J44.9 - Chronic obstructive pulmonary disease, unspecified (4) HTN (hypertension): CODE(S): I10 - Essential (primary) hypertension PLAN: Plan Patient evaluated at the wound healing center. She and her are doing a nice job with her wound care. Her lower extremity edema has improve. Will order compression stockings 30 mmHg. She will be measured today for them. She can wear double tubigrip until she receives her stockings. Stressed importance of wearing compression during the day to help control edema. Instructed on elevating legs when sitting and decreasing sodium intake to hep control leg edema. Wound care - Left groin Aquacel-Ag topped with ABD daily and as needed. Wash wound with soap and water daily. The firm area on her left pubis has resolved with warm compresses and the Doxycycline. Discussed importance of increased protein intake to assist with wound healing. Also she needs to avoid sodium intake to prevent her legs from swelling. Discussed what foods have hidden sodium. She verbalized understanding. Instructed to call or come in sooner if develop any concerns. Follow up for a nurses visit at the end of the week to have 3M 2 layer compression wraps changed and to check on how she is tolerating them. Follow up one week with me.
== END 2024-09-16 23:59 | disposition home or self-care (01) ==
LOC: WC 13:51
PROVIDERS: PCP Physician Assistant; Visit Provider Nurse Practitioner Family
DX: E11.622 Type 2 diabetes mellitus with other skin ulcer (principal); L98.492 Non-pressure chronic ulcer of skin of other sites with fat layer exposed; J44.9 Chronic obstructive pulmonary disease, unspecified; E66.01 Morbid (severe) obesity due to excess calories; Z68.42 Body mass index [BMI] 45.0-49.9, adult; E78.5 Hyperlipidemia, unspecified; F17.210 Nicotine dependence, cigarettes, uncomplicated; I10 Essential (primary) hypertension; R60.0 Localized edema
CPT/HCPCS: 11042

== ENCOUNTER 2024-10-07 14:00 | Outpatient (RCR) | payer MEDICAID, SELFPAY ==
[2024-09-17 00:25] VITALS: BP 159/103; PULSE 78; RESP 18; TEMP 35.6; BMI 46.5
[2024-09-18 14:06] VITALS: BP 165/105; PULSE 88; RESP 16; BMI 46.5
--- NOTE | 2024-09-18 15:14 | PCM.WC.PN ---
History of Present Illness Date of Service: 09/18/24 Chief Complaint: Left labial wound after operative debridement History of Wound: Taylor Velásquez is an 49-year-old female who presents to the wound healing center today for continuation of care of her left labial wound. She states that she had cellulitis and an abscess that she went to [facility] in [place] and they did not I&D in the ER put her on some antibiotics and sent her home. 3 days later on 05/05/24, she return to the ER with increased erythema, pain, and fevers. She has uncontrolled diabetes. Her most recent hemoglobin A1c is 10.2. She is morbidly obese with a BMI of 46. She also smokes cigarettes. She was taken to the OR on 05/05/[address] Donna Mcallister for Necrotizing soft tissue infection of left groin (18 x 11 x 5 cm). Deep tissue cultures were positive for few mixed Anaerobic bacteria. She was discharged home on 05/08/24 doing Dry sterile gauze dressings to the wound 3 x per day. She was discharged on Augmentin x 10 days. She has a history of DM, HTN, hyperlipidemia, GERD, COPD, anxiety/depression. Today she is denying fever, chills, nausea or vomiting. She comes in for further evaluation and treatment of her left labial wound. Progress of Wound: Left labial ulcer is stable. She has started to have thickened, curved edges of this ulcer (Epibole), which is most likely preventing the ulcer from healing. Her helen wound is clear. She denies any issues with the wound care. Her lower extremity edema has has increased with her wearing the moderate compression of single tubigrip. She states that her left leg had been weeping again. She has been trying to keep her legs elevated when sitting. Her insurance will not cover compression stockings. Objective Data Objective Data Vital Signs: Vital Signs Temp Pulse Resp BP O2 Del Method 96.0 F L 88 16 165/105 H Room Air 09/17/24 00:25 09/18/24 14:06 09/18/24 14:06 09/18/24 14:06 09/18/24 14:06 Oxygen Delivery Method Room Air Weight: 287 lb Body Mass Index (BMI) 46.5 Charges/Coding Procedures Integumentary 111xxx-113xx: 72275 Kaelyn subq tissue 20 sq cm/< Debridement Note Debridement Note Wound debrided: Labial/groin ulcer Laterality: Left Wound Grade/Stage: Stage III Type of Debridement: Excisional debridement Anesthesia Used: 5% Lidocaine Gel Depth: Down to and including healthy tissue and in the subcutaneous layer Percentage of wound debrided: 100 Instrument Used: 5mm curette Tissue Removed: Non viable tissue and slough, including rolled edges of the ulcer Severity: Fat Layer Exposed Amount of bleeding with debridement: Mild Bleeding Controlled with: Pressure, Compression and gauze and Silver Nitrate Patient tolerated procedure: Patient tolerated procedure well Post-Debridement Measurements and Additional Note: Post-Debridement Measurements/Treatment - Nurse 1 - General Ulcer Assessment Start: 09/18/24 14:06 Freq: Status: Active Protocol: ELOISA Activity Type Activity Date Activity User E-sign Co-sign Detail Recorded Client Recorded Date Recorded By Document 09/18/24 14:06 FERMIN [id number] 09/18/24 14:16 FERMIN 09/18/24 14:06 TARYN - Today's Visit Information Type of service Follow-up Visit (Physician/PREPARED FOODS PRODUCTION TEAM MEMBER ) Arrival Mode Ambulatory Patient Identification Verified (Name & Yes ) Height and Weight Body Mass Index (BMI) 46.5 BMI Classification Obese Vital Signs Temperature Source Temporal Pulse Rate (60-100) 88 Pulse Location Monitor Respiratory Rate (12-18) 16 Respiratory rate source Observation Oxygen Delivery Method Room Air Blood Pressure (90/60-120/80) 165/105 H Blood Pressure Mean (mm Hg) 125 Source Monitor Position Semi-Fowlers Blood Pressure Location Left Arm History Since Last Visit- (Skip if this is Patient's initial visit) Have you changed medications since your No last visit? Any new allergies or adverse reactions No Had a fall/change in ADL's that may No increase risk of falls Signs or symptoms of abuse and/or No neglect since last visit Have you been in the hospital since your No last visit? Has dressing in place as prescribed Yes Has compression in place as prescribed N/A Has offloadiing in place as prescribed N/A Experienced any changes in pain level or No management Left Footwear Regular Shoe Right Footwear Regular Shoe Pain Scale: 0-10 Numeric Is Patient Pain Free? Yes - Nurse 1 - General Ulcer Measurement Start: 09/18/24 14:06 Freq: Status: Active Protocol: Activity Type Activity Date Activity User E-sign Co-sign Detail Recorded Client Recorded Date Recorded By Document 09/18/24 14:06 [id number] 09/18/24 14:16 09/18/24 14:06 Wound Center Nurse 1 #1 - L GROIN -Current Size (cm) - Length 0.1 -Current Size (cm) - Width 0.1 -Current Size (cm) - Depth 0 -Total Square Cm 0.01 -Date of Last Picture (Recall this 09/18/24 field) -Epithelialization Large 67-100% -Exudate Amt Small -Exudate Type Serosanguineous -Wound Margin Distinct, Outline Attached -Granulation Amt Large (67-100%) -Granulation Quality [place] -Texture (Helen-wound Skin Appearance) Assessed -Moisture (Helen-wound Skin Appearance) Assessed -Color (Helen-wound Skin Appearance) Assessed -Temperature (Helen-wound Skin No Abnormality Appearance) (Pt Warm) -Tenderness on Palpation (Helen-wound No Skin Appearance) -Ulcer Cleansing Rinsed/ Irrigated with Saline -Foul Odor after Cleansing No -Anesthetic Used 5% Lidocaine Gel WC - Nurse 2 - General Ulcer CM Notes Start: 09/18/24 14:06 Freq: Status: Active Protocol: Activity Type Activity Date Activity User E-sign Co-sign Detail Recorded Client Recorded Date Recorded By Document 09/18/24 14:55 [facility] [id number] 09/18/24 15:06 [facility] 09/18/24 14:55 Wound Center Nurse 2 -Time 14:55 -Correct Patient Yes -Correct Side, Site, Position Yes -Correct Procedure Yes -Procedure Performed Yes -Type of Procedure Debridement -Clinical Debridement Subcutaneous -Tissue Removed Subcutaneous -Post Debridement (cm) - Length 2 -Post Debridement (cm) - Width 1.2 -Post Debridement (cm) - Depth 0.1 -Total Square (Post) (cm) 2.4 -Area of Debridement (cm) - Length 2 -Area of Debridement (cm) - Width 1.2 -Total Square (Area) (cm) 2.4 -Tunneling No -Undermining/Tunneling No -Circular Undermining No -Wound/Ulcer Outcome Not Healed -Ulcer Cleansing Rinsed/ Irrigated with Saline -Foul Odor after Cleansing No -Bioengineered Tissue No -Bleeding Controlled with Pressure,Silver Nitrate -Treatment Response Procedure Tolerated Well -Debridement - Subq, 1st 20sq cm Yes Pain Scale: 0-10 Numeric Is Patient Pain Free? Yes Assessment/Plan Assessment/Plan (1) Ulcer of left groin with fat layer exposed: CODE(S): L98.492 - Non-pressure chronic ulcer of skin of other sites with fat layer exposed (2) Bilateral lower extremity edema: CODE(S): R60.0 - Localized edema (3) COPD (chronic obstructive pulmonary disease): CODE(S): J44.9 - Chronic obstructive pulmonary disease, unspecified (4) HTN (hypertension): CODE(S): I10 - Essential (primary) hypertension PLAN: Plan Patient evaluated at the wound healing center. Her lower extremity edema has gotten worse with wearing only the tubigrips (+3 - +4 non pitting). Her insurance will not cover the cost of compression stockings 30 mmHg. Will continue tubigrip with BENJI wrap on top to help decrease her swelling. IF this does not help, she may need to go back into 3M 2 layer wraps to get edema down before she gets int compression stockings. She was instructed that she will need to purchase the stockings herself, since her insurance will not cover them. Encouraged keeping legs elevated when sitting to help with swelling. Wound care - Left groin moistened Aquacel-Ag topped with ABD daily and as needed. Wash wound with soap and water daily. Discussed importance of increased protein intake to assist with wound healing. Also she needs to avoid sodium intake to prevent her legs from swelling. Discussed what foods have hidden sodium. She verbalized understanding. Instructed to call or come in sooner if develop any concerns. Follow up one week.
--- NOTE | 2024-09-19 10:20 | NS ---
09/19/24: RDN planed to meet with pt after wound center appointment on 09/18/24. Pt declined to meet with RDN after her appointment. RDN will attempt follow-up again on 09/25/24. Azalia Cuellar RDN, LD
--- NOTE | 2024-09-25 15:50 | WC ---
Katherin Cordero SYSTEM CONFIGURATION SPECIALIST transfers care of this patient over to Dr. Burciaga as of 09/25/24
[2024-09-30 13:06] VITALS: BP 177/100; PULSE 65; RESP 15; BMI 46.5
--- NOTE | 2024-09-30 16:01 | PCM.WC.PN ---
History of Present Illness Date of Service: 09/30/24 Chief Complaint: Left labial wound after operative debridement History of Wound: Taylor Velásquez is an 49-year-old female who presents to the wound healing center today for continuation of care of her left groin wound. She states that she had cellulitis and an abscess that she went to [facility] in [place] and they did not I&D in the ER put her on some antibiotics and sent her home. Three days later on 05/05/24, she return to the ER with increased erythema, pain, and fevers. She has uncontrolled diabetes. Her most recent hemoglobin A1c is 10.2. She is morbidly obese with a BMI of 46. She also smokes cigarettes. She was taken to the OR on 05/05/[address] Donna Mcallister for Necrotizing soft tissue infection of left groin (18 x 11 x 5 cm). Deep tissue cultures were positive for few mixed Anaerobic bacteria. She was discharged home on 05/08/24 doing Dry sterile gauze dressings to the wound 3 x per day. She was discharged on Augmentin x 10 days. She has a history of DM, HTN, hyperlipidemia, GERD, COPD, anxiety/depression. Today she is denying fever, chills, nausea or vomiting. She comes in for further evaluation and treatment of her wound. She has been seeing the wound care team at [facility] since fall 2023, but this is her first visit with me. Progress of Wound: Left groin ulcer is stable. She has started to have thickened, curved edges of this ulcer. Her helen wound is clear. She denies any issues with the wound care. She has been compliant with wearing the moderate compression of single tubigrip. On Monday, 28 September 2024 (2 days ago), she hit her right anterior leg/hahn just above the ankle on a door and sustained a deep laceration which was washed out and closed by the emergency department with nylon sutures. She denies any fevers chills or pain. No drainage. Her tetanus was updated to the emergency department. Objective Data Objective Data Vital Signs: Vital Signs Temp Pulse Resp BP O2 Del Method 96.0 F L 65 15 177/100 H Room Air 09/17/24 00:25 09/30/24 13:06 09/30/24 13:06 09/30/24 13:06 09/18/24 14:06 Oxygen Delivery Method Room Air Weight: 287 lb Body Mass Index (BMI) 46.5 Charges/Coding Visit Charges Office Visits / Consults: 37013 OV L3 New 30min Procedures Integumentary 111xxx-113xx: 59830 Kaelyn subq tissue 20 sq cm/< (with 25 modifier ) Physical Exam Const alert and oriented x3 General Appearance: cooperative HEENT normocephalic Head and Scalp: atraumatic Eyes General Eye: normal appearance of both eyes Neck full ROM Lymph Lymphatic: no lymphedema noted Resp normal respiratory effort, normal air movement and clear to auscultation bilaterally Effort and Inspection: able to speak in complete sentences Cardio regular rate and regular rhythm GI soft to palpation and non-tender Back/Spine normal ROM Extremity full ROM and normal capillary refill Extremity Narrative: Right anterior hahn with 5 cm laceration with clean dry and intact repair, nylon sutures in place. No drainage Skin Wound Narrative: Left groin wound with pink wound bed. Helen wound is clear. The wound is 1 x 0.5 cm and has subcutaneous tissue at the base. Neuro oriented x3 Psych mental status grossly normal, thought process normal and cooperative Debridement Note Debridement Note Wound debrided: Left groin Laterality: Left Wound Grade/Stage: Stage III Type of Debridement: Excisional debridement Anesthesia Used: 4% Lidocaine Solution Depth: in the subcutaneous layer Percentage of wound debrided: 100 Instrument Used: 7mm curette Tissue Removed: Fibrinous exudate and necrotic fat in the subcutaneous plane Severity: Fat Layer Exposed Amount of bleeding with debridement: Mild Bleeding Controlled with: Compression and gauze Patient tolerated procedure: Patient tolerated procedure well Post-Debridement Measurements and Additional Note: Post-Debridement Measurements/Treatment - Nurse 1 - General Ulcer Assessment Start: 09/18/24 14:06 Freq: Status: Active Protocol: ELOISA Activity Type Activity Date Activity User E-sign Co-sign Detail Recorded Client Recorded Date Recorded By Document 09/18/24 14:06 KW [id number] 09/18/24 14:16 KW Document 09/30/24 13:06 ML [id number] 09/30/24 13:10 ML 09/18/24 09/30/24 14:06 13:06 - Today's Visit Information Type of service Follow-up Visit Follow-up Visit (Physician/RECRUITER COORDINATOR (Physician/RECRUITER COORDINATOR ) ) Arrival Mode Ambulatory Ambulatory Transfer Assistance None Patient Identification Verified (Name & Yes Yes ) Patient Requires Transmission-Based No Precautions Height and Weight Body Mass Index (BMI) 46.5 46.5 BMI Classification Obese Obese Vital Signs Temperature Source Temporal Pulse Rate (60-100) 88 65 Pulse Location Monitor Respiratory Rate (12-18) 16 15 Respiratory rate source Observation Oxygen Delivery Method Room Air Blood Pressure (90/60-120/80) 165/105 H 177/100 H Blood Pressure Mean (mm Hg) 125 125 Source Monitor Monitor Position Semi-Fowlers Sitting Blood Pressure Location Left Arm Left Forearm History Since Last Visit- (Skip if this is Patient's initial visit) Have you changed medications since your No No last visit? Any new allergies or adverse reactions No No Had a fall/change in ADL's that may No No increase risk of falls Signs or symptoms of abuse and/or No No neglect since last visit Have you been in the hospital since your No last visit? Has dressing in place as prescribed Yes Yes Has compression in place as prescribed N/A N/A Has offloadiing in place as prescribed N/A N/A Experienced any changes in pain level or No No management Left Footwear Regular Shoe Right Footwear Regular Shoe Pain Scale: 0-10 Numeric Is Patient Pain Free? Yes Yes WC - Nurse 1 - General Ulcer Measurement Start: 09/18/24 14:06 Freq: Status: Active Protocol: Activity Type Activity Date Activity User E-sign Co-sign Detail Recorded Client Recorded Date Recorded By Document 09/18/24 14:06 KW [id number] 09/18/24 14:16 KW Document 09/30/24 13:06 ML [id number] 09/30/24 13:10 ML 09/18/24 09/30/24 14:06 13:06 Wound Center Nurse 1 #1 - L GROIN -Current Size (cm) - Length 0.1 1.5 -Current Size (cm) - Width 0.1 1 -Current Size (cm) - Depth 0 0.1 -Total Square Cm 0.01 1.5 -Date of Last Picture (Recall this 09/18/24 field) -Epithelialization Large 67-100% -Exudate Amt Small None Present -Exudate Type Serosanguineous -Wound Margin Distinct, Outline Attached -Granulation Amt Large (67-100%) None Present (0 %) -Granulation Quality [place] -Slough/Fibrin No -Necrosis Amt None Present (0 %) -Texture (Helen-wound Skin Appearance) Assessed Assessed -Moisture (Helen-wound Skin Appearance) Assessed Assessed, Maceration -Color (Helen-wound Skin Appearance) Assessed Assessed -Temperature (Helen-wound Skin No Abnormality No Abnormality Appearance) (Pt Warm) (Pt Warm) -Tenderness on Palpation (Helen-wound No No Skin Appearance) -Ulcer Cleansing Rinsed/ Rinsed/ Irrigated with Irrigated with Saline Saline -Foul Odor after Cleansing No No -Anesthetic Used 5% Lidocaine 5% Lidocaine Gel Gel - Nurse 2 - General Ulcer CM Notes Start: 09/18/24 14:06 Freq: Status: Active Protocol: Activity Type Activity Date Activity User E-sign Co-sign Detail Recorded Client Recorded Date Recorded By Document 09/18/24 14:55 [facility] [id number] 09/18/24 15:06 [facility] Document 09/30/24 13:24 [id number] 09/30/24 13:25 09/18/24 09/30/24 14:55 13:24 Wound Center Nurse 2 #1 - L GROIN -Time 14:55 13:24 -Correct Patient Yes Yes -Correct Side, Site, Position Yes Yes -Correct Procedure Yes Yes -Procedure Performed Yes Yes -Type of Procedure Debridement Debridement -Clinical Debridement Subcutaneous Subcutaneous -Tissue Removed Subcutaneous Subcutaneous -Post Debridement (cm) - Length 2 1 -Post Debridement (cm) - Width 1.2 0.5 -Post Debridement (cm) - Depth 0.1 0.1 -Total Square (Post) (cm) 2.4 0.5 -Area of Debridement (cm) - Length 2 1 -Area of Debridement (cm) - Width 1.2 0.5 -Total Square (Area) (cm) 2.4 0.5 -Tunneling No No -Undermining/Tunneling No No -Circular Undermining No No -Wound/Ulcer Outcome Not Healed Not Healed -Ulcer Cleansing Rinsed/ Rinsed/ Irrigated with Irrigated with Saline Saline -Foul Odor after Cleansing No No -Bioengineered Tissue No No -Bleeding Controlled with Pressure,Silver Pressure Nitrate -Treatment Response Procedure Procedure Tolerated Well Tolerated Well -Offloading No -Debridement - Subq, 1st 20sq cm Yes Yes Pain Scale: 0-10 Numeric Is Patient Pain Free? Yes Yes - Nurse 3 - General Ulcer D/C NN Start: 09/18/24 14:06 Freq: Status: Active Protocol: Activity Type Activity Date Activity User E-sign Co-sign Detail Recorded Client Recorded Date Recorded By Document 09/18/24 15:22 DL [id number] 09/18/24 15:24 DL Document 09/30/24 13:47 ML [id number] 09/30/24 13:48 ML 09/18/24 09/30/24 15:22 13:47 Wound Care Center Nurse 3 #1 - L GROIN -Ulcer Cleansing Rinsed/ Rinsed/ Irrigated with Irrigated with Saline Saline -Foul Odor after Cleansing No -Primary Dressing Applied Aquacel AG 4x4 Aquacel AG 4x4 -Primary Dressing Covered/Secured with Dry Gauze, Dry Gauze Secured with Tape -Aquacel AG 4x4 1 1 RLE -Compression Wrap Asael Wrap -Tubular Bandage Single Layer -Size of Tubigrip Used Size F -Size F ($) 1 LLE -Compression Wrap Asael Wrap -Tubular Bandage Single Layer -Size of Tubigrip Used Size F -Size F ($) 1 BLE -Compression Wrap Asael Wrap -Tubular Bandage Single Layer -Size of Tubigrip Used Size E -Size E ($) 1 Treatment Response Procedure Tolerated Well Pain Scale: 0-10 Numeric Is Patient Pain Free? Yes Yes - Visit Discharge Discharge Condition Stable Ambulatory Status Ambulatory Transportation Private Auto Assessment/Plan Assessment/Plan (1) Ulcer of left groin with fat layer exposed: CODE(S): L98.492 - Non-pressure chronic ulcer of skin of other sites with fat layer exposed (2) Bilateral lower extremity edema: CODE(S): R60.0 - Localized edema (3) COPD (chronic obstructive pulmonary disease): CODE(S): J44.9 - Chronic obstructive pulmonary disease, unspecified (4) HTN (hypertension): CODE(S): I10 - Essential (primary) hypertension PLAN: Plan Right lower extremity wound appears to be healing well. I will take the sutures out in 1 week and monitor for healing. Wound care - Left groin moistened Aquacel-Ag topped with ABD daily and as needed. Wash wound with soap and water daily. Discussed importance of increased protein intake to assist with wound healing. Also she needs to avoid sodium intake to prevent her legs from swelling. Discussed what foods have hidden sodium. She verbalized understanding. Instructed to call or come in sooner if develop any concerns. Follow up one week.
[2024-10-07 13:43] VITALS: BP 148/85; PULSE 79; RESP 16; TEMP 36.2; BMI 46.5
--- NOTE | 2024-10-07 14:32 | PN.PCM_ITS ---
History of Present Illness Date of Service: 10/07/24 Chief Complaint: Left labial wound after operative debridement History of Wound: Taylor Velásquez is an 49-year-old female who presents to the wound healing center today for continuation of care of her left groin wound. She states that she had cellulitis and an abscess that she went to [facility] in [place] and they did not I&D in the ER put her on some antibiotics and sent her home. Three days later on 05/05/24, she return to the ER with increased erythema, pain, and fevers. She has uncontrolled diabetes. Her most recent hemoglobin A1c is 10.2. She is morbidly obese with a BMI of 46. She also smokes cigarettes. She was taken to the OR on 05/05/[address] Donna Mcallister for Necrotizing soft tissue infection of left groin (18 x 11 x 5 cm). Deep tissue cultures were positive for few mixed Anaerobic bacteria. She was discharged ho co on 05/08/24 doing Dry sterile gauze dressings to the wound 3 x per day. She was discharged on Augmentin x 10 days. She has a history of DM, HTN, hyperlipidemia, GERD, COPD, anxiety/depression. Today she is denying fever, chills, nausea or vomiting. She comes in for further evaluation and treatment of her wound. She has been seeing the wound care team at [facility] since fall 2023, but this is her first visit with me. Progress of Wound: 30 September 2024: Left groin ulcer is stable. She has started to have thickened, curved edges of this ulcer. Her helen wound is clear. She denies any issues with the wound care. She has been compliant with wearing the moderate compression of single tubigrip. On Monday, 28 September 2024 (2 days ago), she hit her right anterior leg/hahn just above the ankle on a door and sustained a deep laceration which was washed out and closed by the emergency department with nylon sutures. She denies any fevers chills or pain. No drainage. Her tetanus was updated to the emergency department. CURRENT ENCOUNTER, 07 October 2024: Doing well overall. Sugars controlled. No fevers or chills. feels like wound is getting smaller and no pain from right leg suture line. Objective Data Objective Data Vital Signs: Vital Signs Temp Pulse Resp BP O2 Del Method 97.2 F L 79 16 148/85 H Room Air 10/07/24 13:43 10/07/24 13:43 10/07/24 13:43 10/07/24 13:43 10/07/24 13:43 Oxygen Delivery Method Room Air Weight: 287 lb Body Mass Index (BMI) 46.5 Charges/Coding Procedures Integumentary 111xxx-113xx: 96408 Kaelyn subq tissue 20 sq cm/< Physical Exam Const alert and oriented x3 General Appearance: cooperative HEENT normocephalic Head and Scalp: atraumatic Eyes General Eye: normal appearance of both eyes Neck full ROM Lymph Lymphatic: no lymphedema noted Resp normal respiratory effort, normal air movement and clear to auscultation bilaterally Effort and Inspection: able to speak in complete sentences Cardio regular rate and regular rhythm GI soft to palpation and non-tender Back/Spine normal ROM Extremity full ROM and normal capillary refill Extremity Narrative: Right anterior hahn with 5 cm laceration with clean dry and intact repair, nylon sutures in place. No drainage Sutures removed Skin Wound Narrative: Left groin wound with pink wound bed. Helen wound is clear. The wound is 0.5 x 0.5 cm (with 0.2 cm depth) and has subcutaneous tissue at the base (Smaller) Neuro oriented x3 Psych mental status grossly normal, thought process normal and cooperative Debridement Note Debridement Note Wound debrided: Left groin Laterality: Left Wound Grade/Stage: 3 Type of Debridement: Excisional debridement Anesthesia Used: 4% Lidocaine Solution Depth: in the subcutaneous layer Percentage of wound debrided: 100 Instrument Used: 5mm curette Tissue Removed: Necrotic fibrinous exudate and hypertrophic granulation tissue and biofilm Severity: Fat Layer Exposed Amount of bleeding with debridement: Mild Bleeding Controlled with: Compression and gauze Patient tolerated procedure: Patient tolerated procedure well Post-Debridement Measurements and Additional Note: Post-Debridement Measurements/Treatment WC - Nurse 1 - General Ulcer Assessment Start: 09/18/24 14:06 Freq: Status: Active Protocol: ELOISA Activity Type Activity Date Activity User E-sign Co-sign Detail Recorded Client Recorded Date Recorded By Document 09/18/24 14:06 KW [id number] 09/18/24 14:16 KW Document 09/30/24 13:06 ML [id number] 09/30/24 13:10 ML Document 10/07/24 13:43 BMF [id number] 10/07/24 13:52 BM 09/18/24 09/30/24 10/07/24 14:06 13:06 13:43 - Today's Visit Information Type of service Follow-up Visit Follow-up Visit Follow-up Visit (Physician/JEWELRY ENGRAVER (Physician/JEWELRY ENGRAVER (Physician/JEWELRY ENGRAVER ) ) ) Arrival Mode Ambulatory Ambulatory Ambulatory Transfer Assistance None None Patient Identification Verified (Name & Yes Yes Yes ) Patient Requires Transmission-Based No No Precautions Height and Weight Body Mass Index (BMI) 46.5 46.5 46.5 BMI Classification Obese Obese Obese Vital Signs Temperature (97.8 F-99.1 F) 97.2 F L Temperature Source Temporal Temporal Pulse Rate (60-100) 88 65 79 Pulse Location Monitor Monitor Respiratory Rate (12-18) 16 15 16 Respiratory rate source Observation Observation Oxygen Delivery Method Room Air Room Air Blood Pressure (90/60-120/80) 165/105 H 177/100 H 148/85 H Blood Pressure Mean (mm Hg) 125 125 106 Source Monitor Monitor Monitor Position Semi-Fowlers Sitting Sitting Blood Pressure Location Left Arm Left Forearm Left Arm History Since Last Visit- (Skip if this is Patient's initial visit) Have you changed medications since your No No No last visit? Any new allergies or adverse reactions No No No Had a fall/change in ADL's that may No No No increase risk of falls Signs or symptoms of abuse and/or No No No neglect since last visit Have you been in the hospital since your No No last visit? Has dressing in place as prescribed Yes Yes Yes Has compression in place as prescribed N/A N/A N/A Has offloadiing in place as prescribed N/A N/A N/A Experienced any changes in pain level or No No No management Left Footwear Regular Shoe Regular Shoe Right Footwear Regular Shoe Regular Shoe Pain Scale: 0-10 Numeric Is Patient Pain Free? Yes Yes Yes - Nurse 1 - General Ulcer Measurement Start: 09/18/24 14:06 Freq: Status: Active Protocol: Activity Type Activity Date Activity User E-sign Co-sign Detail Recorded Client Recorded Date Recorded By Document 09/18/24 14:06 KW [id number] 09/18/24 14:16 KW Document 09/30/24 13:06 ML [id number] 09/30/24 13:10 ML Document 10/07/24 13:43 [facility] [id number] 10/07/24 13:52 BM 09/18/24 09/30/24 10/07/24 14:06 13:06 13:43 Wound Center Nurse 1 #1 - L GROIN -Combined with other wound No -Current Size (cm) - Length 0.1 1.5 -Current Size (cm) - Width 0.1 1 -Current Size (cm) - Depth 0 0.1 -Total Square Cm 0.01 1.5 -Date of Last Picture (Recall this 09/18/24 10/07/24 field) -Photo Taken Yes -Epithelialization Large 67-100% -Tunneling No -Undermining/Tunneling No -Circular Undermining No -Exudate Amt Small None Present Medium -Exudate Type Serosanguineous Serosanguineous -Wound Margin Distinct, Thickened Outline Attached -Granulation Amt Large (67-100%) None Present (0 Large (67-100%) %) -Granulation Quality [place] Red -Slough/Fibrin No No -Necrosis Amt None Present (0 None Present (0 %) %) -Texture (Helen-wound Skin Appearance) Assessed Assessed Assessed, Scarring -Moisture (Helen-wound Skin Appearance) Assessed Assessed, Assessed Maceration -Color (Helen-wound Skin Appearance) Assessed Assessed Assessed -Temperature (Helen-wound Skin No Abnormality No Abnormality No Abnormality Appearance) (Pt Warm) (Pt Warm) (Pt Warm) -Tenderness on Palpation (Helen-wound No No No Skin Appearance) -Ulcer Cleansing Rinsed/ Rinsed/ Rinsed/ Irrigated with Irrigated with Irrigated with Saline Saline Saline -Foul Odor after Cleansing No No No -Anesthetic Used 5% Lidocaine 5% Lidocaine 5% Lidocaine Gel Gel Gel Lower Limb Edema Present Yes Right Calf (cm) 51 Right Ankle (cm) 30.5 Left Calf (cm) 53 Left Ankle (cm) 35.5 WC - Nurse 2 - General Ulcer CM Notes Start: 09/18/24 14:06 Freq: Status: Active Protocol: Activity Type Activity Date Activity User E-sign Co-sign Detail Recorded Client Recorded Date Recorded By Document 09/18/24 14:55 [facility] [id number] 09/18/24 15:06 [facility] Document 09/30/24 13:24 [id number] 09/30/24 13:25 JF 09/18/24 09/30/24 14:55 13:24 Wound Center Nurse 2 #1 - L GROIN -Time 14:55 13:24 -Correct Patient Yes Yes -Correct Side, Site, Position Yes Yes -Correct Procedure Yes Yes -Procedure Performed Yes Yes -Type of Procedure Debridement Debridement -Clinical Debridement Subcutaneous Subcutaneous -Tissue Removed Subcutaneous Subcutaneous -Post Debridement (cm) - Length 2 1 -Post Debridement (cm) - Width 1.2 0.5 -Post Debridement (cm) - Depth 0.1 0.1 -Total Square (Post) (cm) 2.4 0.5 -Area of Debridement (cm) - Length 2 1 -Area of Debridement (cm) - Width 1.2 0.5 -Total Square (Area) (cm) 2.4 0.5 -Tunneling No No -Undermining/Tunneling No No -Circular Undermining No No -Wound/Ulcer Outcome Not Healed Not Healed -Ulcer Cleansing Rinsed/ Rinsed/ Irrigated with Irrigated with Saline Saline -Foul Odor after Cleansing No No -Bioengineered Tissue No No -Bleeding Controlled with Pressure,Silver Pressure Nitrate -Treatment Response Procedure Procedure Tolerated Well Tolerated Well -Offloading No -Debridement - Subq, 1st 20sq cm Yes Yes Pain Scale: 0-10 Numeric Is Patient Pain Free? Yes Yes - Nurse 3 - General Ulcer D/C NN Start: 09/18/24 14:06 Freq: Status: Active Protocol: Activity Type Activity Date Activity User E-sign Co-sign Detail Recorded Client Recorded Date Recorded By Document 09/18/24 15:22 DL [id number] 09/18/24 15:24 DL Document 09/30/24 13:47 ML [id number] 09/30/24 13:48 ML 09/18/24 09/30/24 15:22 13:47 Wound Care Center Nurse 3 #1 - L GROIN -Ulcer Cleansing Rinsed/ Rinsed/ Irrigated with Irrigated with Saline Saline -Foul Odor after Cleansing No -Primary Dressing Applied Aquacel AG 4x4 Aquacel AG 4x4 -Primary Dressing Covered/Secured with Dry Gauze, Dry Gauze Secured with Tape -Aquacel AG 4x4 1 1 RLE -Compression Wrap Asael Wrap -Tubular Bandage Single Layer -Size of Tubigrip Used Size F -Size F ($) 1 LLE -Compression Wrap Asael Wrap -Tubular Bandage Single Layer -Size of Tubigrip Used Size F -Size F ($) 1 BLE -Compression Wrap Asael Wrap -Tubular Bandage Single Layer -Size of Tubigrip Used Size E -Size E ($) 1 Treatment Response Procedure Tolerated Well Pain Scale: 0-10 Numeric Is Patient Pain Free? Yes Yes WC - Visit Discharge Discharge Condition Stable Ambulatory Status Ambulatory Transportation Private Auto Assessment/Plan Assessment/Plan (1) Ulcer of left groin with fat layer exposed: CODE(S): L98.492 - Non-pressure chronic ulcer of skin of other sites with fat layer exposed (2) Wound of right lower extremity: CODE(S): S81.801A - Unspecified open wound, right lower leg, initial encounter PLAN: Plan Right lower extremity wound appears to be healing well. Sutures removed today. Plan to continue to cover with a Band-Aid until she sees me again but can place Aquaphor over the incision line for now. No signs of infection Wound care - Left groin moistened Aquacel-Ag topped with ABD daily and as needed. Wash wound with soap and water daily. Appears to be getting smaller Discussed importance of increased protein intake to assist with wound healing. Also she needs to avoid sodium intake to prevent her legs from swelling. Discussed what foods have hidden sodium. She verbalized understanding. Instructed to call or come in sooner if develop any concerns. Follow-up in 2 weeks
--- NOTE | 2024-10-08 10:22 | WC ---
PHOTO 10/07/24 LYNDA
--- NOTE | 2024-10-08 10:24 | WC ---
PHOTO 10/07/24 LEFT GROIN
== END 2024-10-16 23:59 | disposition home or self-care (01) ==
LOC: WC 14:00
PROVIDERS: PCP Physician Assistant; Visit Provider Surgery Plastic and Reconstructive Surgery
DX: E11.622 Type 2 diabetes mellitus with other skin ulcer (principal); L98.492 Non-pressure chronic ulcer of skin of other sites with fat layer exposed; J44.9 Chronic obstructive pulmonary disease, unspecified; E66.01 Morbid (severe) obesity due to excess calories; Z68.42 Body mass index [BMI] 45.0-49.9, adult; E78.5 Hyperlipidemia, unspecified; F17.210 Nicotine dependence, cigarettes, uncomplicated; I10 Essential (primary) hypertension; R60.0 Localized edema; S81.811D Laceration without foreign body, right lower leg, subsequent encounter; W22.8XXD Striking against or struck by other objects, subsequent encounter
CPT/HCPCS: 11042

== ENCOUNTER 2024-10-21 13:18 | Outpatient (RCR) | payer MEDICAID, SELFPAY ==
[2024-10-17 00:11] VITALS: BP 148/85; PULSE 79; RESP 16; TEMP 36.2; BMI 46.5
[2024-10-21 14:20] VITALS: BP 158/83; PULSE 67; RESP 18; TEMP 36.1; BMI 46.5
--- NOTE | 2024-10-22 13:20 | WC ---
photo 10/21/24 left groin
--- NOTE | 2024-10-22 17:48 | PN.PCM_ITS ---
History of Present Illness Date of Service: 10/21/24 Chief Complaint: Left groin wound after operative debridement History of Wound: Chief Complaint: Left groin wound after operative debridement History of Wound: Taylor Velásquez is an 49-year-old female who presents to the wound healing center today for continuation of care of her left groin wound. She states that she had cellulitis and an abscess that she went to [facility] in [place] and they did not I&D in the ER put her on some antibiotics and sent her home. Three days later on 05/05/24, she return to the ER with increased erythema, pain, and fevers. She has uncontrolled diabetes. Her most recent hemoglobin A1c is 10.2. She is morbidly obese with a BMI of 46. She also smokes cigarettes. She was taken to the OR on 05/05/[address] Donna Mcallister for Necrotizing soft tissue infection of left groin (18 x 11 x 5 cm). Deep tissue cultures were positive for few mixed Anaerobic bacteria. She was discharged home on 05/08/24 doing Dry sterile gauze dressings to the wound 3 x per day. She was discharged on Augmentin x 10 days. She has a history of DM, HTN, hyperlipidemia, GERD, COPD, anxiety/depression. Today she is denying fever, chills, nausea or vomiting. She comes in for further evaluation and treatment of her wound. She has been seeing the wound care team at [facility] since fall 2023, but this is her first visit with me. Progress of Wound: 30 September 2024: Left groin ulcer is stable. She has started to have thickened, curved edges of this ulcer. Her helen wound is clear. She denies any issues with the wound care. She has been compliant with wearing the moderate compression of single tubigrip. On Monday, 28 September 2024 (2 days ago), she hit her right anterior leg/hahn just above the ankle on a door and sustained a deep laceration which was washed out and closed by the emergency department with nylon sutures. She denies any fevers chills or pain. No drainage. Her tetanus was updated to the emergency department. Subjective Subjective 07 October 2024: Doing well overall. Sugars controlled. No fevers or chills. feels like wound is getting smaller and no pain from right leg suture line. CURRENT ENCOUNTER, 22 Oct 2024: Doing well overall and feels like her wound is healing. She reports that her legs swell from time to time but her feet never swell. She reports that when she gains weight she has fat deposit in the thighs and the legs mostly. Patient also reports that she had a heart attack several years ago in [place], but does not remember the details surrounding the incident. She reports that a blood clot was removed from my heart through the blood vessels in my groin. She is not sure if she had a heart catheter or not. Reports that she never had a lower extremity blood clot. Overall history regarding this hospitalization is unclear and we are obtaining medical records. Objective Data Objective Data Vital Signs: Vital Signs Temp Pulse Resp BP 96.9 F L 67 18 158/83 H 10/21/24 14:20 10/21/24 14:20 10/21/24 14:20 10/21/24 14:20 Weight: 287 lb Body Mass Index (BMI) 46.5 Charges/Coding Visit Charges Office Visits / Consults: 21541 OV L3 Est 20min Wound Center CF Procedures 96XXX-98XXX: 16887 RMVL DEVITAL TIS 20 CM/< Multi Select Codes Wound Center CF Procedures [id number]-[id number]: 22440 RMVL DEVITAL TIS 20 CM/< Physical Exam Const alert and oriented x3 General Appearance: cooperative HEENT normocephalic Head and Scalp: atraumatic Eyes General Eye: normal appearance of both eyes Neck full ROM Lymph Lymphatic: no lymphedema noted Resp normal respiratory effort, normal air movement and clear to auscultation bilaterally Effort and Inspection: able to speak in complete sentences Cardio regular rate, regular rhythm, S1 normal heart sound, S2 normal heart sound, no murmurs, no rub and no gallops GI soft to palpation and non-tender Back/Spine normal ROM Extremity full ROM and normal capillary refill Extremity Narrative: Right anterior hahn 5 cm laceration has healed. Appropriate scarring/no hypertrophic scar Thighs and legs are swollen symmetrically, but appear to be swollen mostly with fat deposition. No feet swelling and negative Stemmer sign (skin can be pinched on the dorsum of the foot suggestive more of lipedema) Vascular exam: 2+ dorsalis pedis pulses bilaterally. Sensory exam: Sensation to light touch intact throughout the feet bilaterally. Skin Wound Narrative: Left groin wound with pink wound bed. Helen wound is clear. The wound is 0.5 x 0.5 cm (with 0.1 cm depth) and has subcutaneous tissue at the base (Smaller) Neuro oriented x3 Psych mental status grossly normal, thought process normal and cooperative Debridement Note Debridement Note Wound debrided: Left groin wound Laterality: Left Wound Grade/Stage: Stage II Type of Debridement: Selective debridement Anesthesia Used: 4% Lidocaine Solution Depth: Down to and including healthy tissue Percentage of wound debrided: 100 Instrument Used: 5mm curette Tissue Removed: Biofilm and fibrinous exudate Severity: Limited To Skin Breakdown Amount of bleeding with debridement: Mild Bleeding Controlled with: Compression and gauze Patient tolerated procedure: Patient tolerated procedure well Post-Debridement Measurements and Additional Note: Post-Debridement Measurements/Treatment WC - Nurse 1 - General Ulcer Assessment Start: 10/21/24 14:20 Freq: Status: Active Protocol: ELOISA Activity Type Activity Date Activity User E-sign Co-sign Detail Recorded Client Recorded Date Recorded By Document 10/21/24 14:20 DL [id number] 10/21/24 14:27 DL 10/21/24 14:20 WC - Today's Visit Information Type of service Follow-up Visit (Physician/INTERVENTION NURSE ) Arrival Mode Ambulatory Transfer Assistance None Patient Identification Verified (Name & Yes ) Patient Requires Transmission-Based No Precautions Height and Weight Body Mass Index (BMI) 46.5 BMI Classification Obese Vital Signs Temperature (97.8 F-99.1 F) 96.9 F L Temperature Source Temporal Pulse Rate (60-100) 67 Pulse Location Monitor Respiratory Rate (12-18) 18 Respiratory rate source Observation Blood Pressure (90/60-120/80) 158/83 H Blood Pressure Mean (mm Hg) 108 Source Monitor History Since Last Visit- (Skip if this is Patient's initial visit) Have you changed medications since your No last visit? Any new allergies or adverse reactions No Had a fall/change in ADL's that may No increase risk of falls Signs or symptoms of abuse and/or No neglect since last visit Have you been in the hospital since your No last visit? Has dressing in place as prescribed Yes Has compression in place as prescribed N/A Has offloadiing in place as prescribed N/A Experienced any changes in pain level or No management Pain Scale: 0-10 Numeric Is Patient Pain Free? Yes - Nurse 1 - General Ulcer Measurement Start: 10/21/24 14:20 Freq: Status: Active Protocol: Activity Type Activity Date Activity User E-sign Co-sign Detail Recorded Client Recorded Date Recorded By Document 10/21/24 14:20 AUGUSTO [id number] 10/21/24 14:27 DL 10/21/24 14:20 Wound Center Nurse 1 #1 - L GROIN -Current Size (cm) - Length 0.7 -Current Size (cm) - Width 0.5 -Current Size (cm) - Depth 0.2 -Total Square Cm 0.35 -Photo Taken Yes -Exudate Amt Small -Exudate Type Serosanguineous -Wound Margin Distinct, Outline Attached -Granulation Amt Large (67-100%) -Granulation Quality [place] -Necrosis Amt None Present (0 %) -Structure Exposed N/A -Texture (Helen-wound Skin Appearance) Scarring -Moisture (Helen-wound Skin Appearance) No Abnormality -Color (Helen-wound Skin Appearance) No Abnormality -Temperature (Helen-wound Skin No Abnormality Appearance) (Pt Warm) -Tenderness on Palpation (Helen-wound No Skin Appearance) -Ulcer Cleansing Rinsed/ Irrigated with Saline -Foul Odor after Cleansing No -Anesthetic Used 5% Lidocaine Gel WC - Nurse 2 - General Ulcer CM Notes Start: 10/21/24 14:20 Freq: Status: Active Protocol: Activity Type Activity Date Activity User E-sign Co-sign Detail Recorded Client Recorded Date Recorded By Document 10/21/24 14:40 JF [id number] 10/21/24 14:43 JF 10/21/24 14:40 Wound Center Nurse 2 -Time 14:42 -Correct Patient Yes -Correct Side, Site, Position Yes -Correct Procedure Yes -Procedure Performed Yes -Type of Procedure Debridement -Clinical Debridement Epidermis / Dermis -Tissue Removed Epidermis -Post Debridement (cm) - Length 0.5 -Post Debridement (cm) - Width 0.5 -Post Debridement (cm) - Depth 0.1 -Total Square (Post) (cm) 0.25 -Area of Debridement (cm) - Length 0.5 -Area of Debridement (cm) - Width 0.5 -Total Square (Area) (cm) 0.25 -Tunneling No -Undermining/Tunneling No -Circular Undermining No -Wound/Ulcer Outcome Not Healed -Ulcer Cleansing Rinsed/ Irrigated with Saline -Foul Odor after Cleansing No -Bioengineered Tissue No -Bleeding Controlled with Pressure -Treatment Response Procedure Not Tolerated Well -Debridement - Open, 1st 20sq cm Yes Pain Scale: 0-10 Numeric Is Patient Pain Free? Yes WC - Nurse 3 - General Ulcer D/C NN Start: 10/21/24 14:20 Freq: Status: Active Protocol: Activity Type Activity Date Activity User E-sign Co-sign Detail Recorded Client Recorded Date Recorded By Document 10/21/24 14:59 KW [id number] 10/21/24 15:00 KW 10/21/24 14:59 Wound Care Center Nurse 3 #1 - L GROIN -Primary Dressing Applied Aquacel AG 4x4 -Primary Dressing Covered/Secured with Dry Gauze, Secured with Tape -Aquacel AG 4x4 1 Pain Scale: 0-10 Numeric Is Patient Pain Free? Yes WC - Visit Discharge Discharge Condition Stable Ambulatory Status Ambulatory Transportation Private Auto Medication Reconcilliation completed & No provided to patient/care provider Clinical Summary of Care Provided Yes Assessment/Plan Assessment/Plan (1) Ulcer of left groin with fat layer exposed: CODE(S): L98.492 - Non-pressure chronic ulcer of skin of other sites with fat layer exposed (2) Wound of right lower extremity: CODE(S): S81.801A - Unspecified open wound, right lower leg, initial encounter PLAN: Healed (3) Lipedema of lower extremity: CODE(S): R60.0 - Localized edema (4) Heart disease: CODE(S): I51.9 - Heart disease, unspecified PLAN: Plan Right lower extremity wound healed. Wound care - Left groin moistened Aquacel-Ag topped with ABD daily and as needed. Wash wound with soap and water daily. Appears to be getting smaller Discussed importance of increased protein intake to assist with wound healing. Discussed with her my concern for lower extremity swelling. We have ordered ABIs and venous duplex ultrasonography. I am more concerned for lipedema at this point, but vascular insufficiency as well as heart disease need to be ruled out (no fluid in the lungs but could be right-sided heart disease leading to lower extremity swelling, albeit this would involve the feet, so again points towards lipedema). Regardless, she needs follow-up with a blood bank supervisor (does not have a blood bank supervisor right now). We are obtaining her notes from [facility] and will refer her to cardiology at [facility]. Follow-up in 2 weeks.
== END 2024-11-16 23:59 | disposition home or self-care (01) ==
LOC: WC 13:18
PROVIDERS: PCP Physician Assistant; Visit Provider Surgery Plastic and Reconstructive Surgery
DX: E11.621 Type 2 diabetes mellitus with foot ulcer (principal); L98.491 Non-pressure chronic ulcer of skin of other sites limited to breakdown of skin; I11.0 Hypertensive heart disease with heart failure; I50.9 Heart failure, unspecified; J44.9 Chronic obstructive pulmonary disease, unspecified; E66.01 Morbid (severe) obesity due to excess calories; Z68.42 Body mass index [BMI] 45.0-49.9, adult; F17.210 Nicotine dependence, cigarettes, uncomplicated; E78.5 Hyperlipidemia, unspecified; K21.9 Gastro-esophageal reflux disease without esophagitis; S81.811D Laceration without foreign body, right lower leg, subsequent encounter; W22.8XXD Striking against or struck by other objects, subsequent encounter
CPT/HCPCS: 97597